=== PATIENT | female | born 1950 | race Caucasian/White ===

== ENCOUNTER 2017-01-02 13:08 | Emergency (ER) | payer MEDICARE, OTHER ==
[2017-01-02] MEDS ORDERED: LORazepam 0.5 MG TABLET PO STA (14:49)
[2017-01-02] MEDS ORDERED: LORazepam 0.5 MG TABLET ONE (14:50)
== END 2017-01-02 16:47 | disposition home or self-care (01) ==
DX: F41.9 Anxiety disorder, unspecified (principal); R73.9 Hyperglycemia, unspecified; R03.0 Elevated blood-pressure reading, without diagnosis of hypertension; Z87.891 Personal history of nicotine dependence
CPT/HCPCS: 36415; 80048; 84443; 99283; 99284; A9270

== ENCOUNTER 2017-02-16 00:54 | Outpatient (CLI) | payer MEDICARE, OTHER | END 2017-02-16 00:55 | disposition EMS.NT | LOC: EMS 00:54 | PROVIDERS: ATTEND Surgery | DX: R06.02 Shortness of breath (principal) ==

== ENCOUNTER 2017-02-28 00:24 | Outpatient (CLI) | payer MEDICARE, OTHER | END 2017-02-28 00:25 | disposition critical access hospital (66) | LOC: EMS 00:24 | PROVIDERS: ATTEND Surgery | DX: T50.902A Poisoning by unspecified drugs, medicaments and biological substances, intentional self-harm, initial encounter (principal) | CPT/HCPCS: A0425; A0433 ==

== ENCOUNTER 2017-03-01 00:44 | Inpatient (IN) | payer MEDICARE, OTHER ==
[~2017-03-01 00:44] MED LIST: ALBUTEROL NEB 2.5 MG/3 ML INH ONE; IPRATROPIUM/ALBUTEROL 3 ML NEB INH ONE; PROPOFOL 1000 MG/100 ML 0 ML IV ONE
[2017-03-01] MEDS ORDERED: methylPREDNISolone SUCCINATE 125 MG/2 ML VIAL IVP ONE (00:46)
[2017-03-01] MEDS ORDERED: MAGNESIUM SULFATE 2 GRAM 50 ML IV ONE ×2 (00:46→11:00)
[2017-03-01] MEDS ORDERED: EPINEPHrine 1 MG/ML AMP ONE ×2 (00:47→01:14)
[2017-03-01] MEDS ORDERED: LORazepam 2 MG/ML SYRINGE ONE (00:50)
[2017-03-01 01:07] LABS: BASOPHILS % (AUTO) 0.4 %; EOSINOPHILS # (AUTO) 0.1 10^3/uL (0.0-0.7); EOSINOPHILS % (AUTO) 1.3 %; HCT - HEMATOCRIT 36.3 % (37.0-47.0); HGB - HEMOGLOBIN 12.2 g/dL (12.0-16.0); LYMPHOCYTES # (AUTO) 1.4 10^3/uL (1.5-3.5); LYMPHOCYTES % (AUTO) 17.5 %; MEAN CORPUSCULAR HEMOGLOBIN 31.2 pg (27.0-31.0); MEAN CORPUSCULAR HGB CONC 33.5 g/dL (32.0-36.0); MEAN CORPUSCULAR VOLUME 93.2 fL (81.0-99.0); MEAN PLATELET VOLUME 7.2 fL (7.9-10.8); MONOCYTES # (AUTO) 0.7 10^3/uL (0.0-1.0); MONOCYTES % (AUTO) 8.6 %; NEUTROPHILS # (AUTO) 5.9 10^3/uL (1.5-6.6); NEUTROPHILS % (AUTO) 72.2 %; RED BLOOD COUNT 3.89 10^6/uL (4.20-5.40); RED CELL DISTRIBUTION WIDTH 14.1 % (12.0-15.0); UNCORRECTED WHITE BLOOD COUNT 8.1 x10^3/uL; WHITE BLOOD COUNT 8.1 x10^3/uL (4.8-10.8)
[2017-03-01] MEDS ORDERED: LORazepam 2 MG/ML SYRINGE IVP STA (01:07)
[2017-03-01] MEDS ORDERED: methylPREDNISolone SUCCINATE 125 MG/2 ML VIAL IVP STA (01:07)
[2017-03-01] MEDS ORDERED: MAGNESIUM SULFATE 1 GM/2 ML VIAL IVP STA (01:07)
[2017-03-01] MEDS ORDERED: EPINEPHrine 1 MG/ML AMP IM STA (01:07)
[2017-03-01] MEDS ORDERED: SODIUM BICARBONATE ABBOJECT 50 MEQ/50 ML SYRINGE ONE ×4 (01:09→03:57)
[2017-03-01 01:14] LABS: ALBUMIN/GLOBULIN RATIO 1.7 (1.0-2.2); BILIRUBIN,TOTAL 0.5 mg/dL (0.2-1.0); BUN - BLOOD UREA NITROGEN 19 mg/dL (6-20); CALCIUM 7.8 mg/dL (8.5-10.3); CARBON DIOXIDE - CO2 27 mmol/L (21-32); CHLORIDE 98 mmol/L (101-111); CREATININE 0.8 mg/dL (0.4-1.0); GFR - MDRD 72 (>89); GLUCOSE 156 mg/dL (70-100); LIPASE 72 U/L (22-51); MAGNESIUM 1.5 mg/dL (1.7-2.8); PHOSPHORUS 3.9 mg/dL (2.5-4.6); POTASSIUM 3.4 mmol/L (3.5-5.0); SODIUM 133 mmol/L (135-145); TOTAL PROTEIN 5.4 g/dL (6.7-8.2)
[2017-03-01] MEDS ORDERED: ETOMIDATE 40 MG/20 ML VIAL IVP STA (01:20)
[2017-03-01 01:21] LABS: CREATINE KINASE MB 1.6 ng/mL (0.6-6.3); TROPONIN I < 0.04 ng/mL (<0.49)
[2017-03-01] MEDS ORDERED: SUCCINYLCHOLINE 200 MG/10 ML VIAL IVP STA (01:22)
[2017-03-01] MEDS ORDERED: SODIUM BICARBONATE ABBOJECT 50 MEQ/50 ML SYRINGE IVP STA ×4 (01:23→01:57)
[2017-03-01] MEDS ORDERED: IPRATROPIUM/ALBUTEROL 3 ML NEB INH STA (01:35)
[2017-03-01] MEDS ORDERED: ALBUTEROL NEB 2.5 MG/3 ML INH STA (01:37)
[2017-03-01 01:41] LABS: BILIRUBIN,URINE NEGATIVE (NEGATIVE)
[2017-03-01 01:55] LABS: UA w/ MICROSCOPIC CHARGE YES; UR CULTURE IF IND NOT INDICATED
[2017-03-01] MEDS ORDERED: SODIUM CHLORIDE 0.9% 1,000 ML IV ONE ×2 (01:58)
--- NOTE | 2017-03-01 02:11 | XRAY Preliminary Report ---
Exam: XR Chest 1 View IMPRESSION: Small streaky left lateral basilar opacity may be due to atelectasis, aspiration, and/or pneumonia. [facility] SITE ID: [id number]
--- NOTE | 2017-03-01 02:13 | XRAY Report ---
EXAM: CHEST RADIOGRAPHY EXAM DATE: 03/01/2017 01:43 AM. CLINICAL HISTORY: Respiratory failure, intubation COMPARISON: None. TECHNIQUE: 1 view. FINDINGS: Lungs/Pleura: Nonspecific small streaky left basilar density with partial silhouetting of the left he midiaphragm. No effusion or pneumothorax demonstrated elsewhere. Mediastinum: Within exam limitations, cardiomediastinal contour is normal. Other: Endotracheal tube tip projects 6.1 cm above kolby. Orogastric tube extends below the inferior margin of the film. Rim calcified bilateral breast prosthesis are noted. IMPRESSION: Small streaky left lateral basilar opacity may be due to atelectasis, aspiration, and/or pneumonia. [facility] Referring Provider Line: [phone] SITE ID: [id number]
--- NOTE | 2017-03-01 02:22 | ED Physician Documentation ---
PD HPI ALTERED MENTAL STATUS - Stated complaint Stated Complaint: UNRESPONSIVE/SI - Chief complaint Chief Complaint: Resp - History obtained from History obtained from: Family, EMS - History of Present Illness Timing - onset: Today Quality / character: Unresponsive Contributing factors: COPD, New medication Basline status: Alert and oriented X 3, Independent Similar symptoms before: Has not had sx before Recently seen: Clinic - Additional information Additional information: Patient is a 66 year old female with a history of depression and recently diagnosed with copd who was brought into the emergency department for altered mental status. According to family and ems, when the woke up to go to the bathroom this evening (he sleeps in a different room) he noticed the hallway light was on. When he went to go check on the patient there was a note on the door that said "please dont come in, call the baseball winder." called ems. when ems arrived that patient was minimally responsive and barely breathing but with stable bp and heart rate. While enroute ems intubated the patient but they were having a hard time bagging the patient so they extubated the patient had did hand bagging. When patient arrived in the emergency department she was unresponsive but had stable vital signs. Review of Systems Unable to obtain: Unresponsive PD PAST MEDICAL HISTORY - Past Medical History Cardiovascular: High cholesterol Psych: Depression, Anxiety - Past Surgical History Past Surgical History: No - Present Medications Home Medications: Ambulatory Orders Medication Instructions Recorded Confirmed Amitriptyline HCl 25 mg PO DAILY 01/02/17 01/02/17 Clonazepam 0.5 mg PO Q12H PRN #15 tablet 01/02/17 Mirtazapine 45 mg PO DAILY 01/02/17 01/02/17 Simvastatin 10 mg PO DAILY 01/02/17 01/02/17 Venlafaxine HCl [Venlafaxine HCl 75 mg PO DAILY 01/02/17 01/02/17 ER] - Allergies Allergies/Adverse Reactions: Allergies Allergy/AdvReac Type Severity Reaction Status Date / Time No Known Drug Allergies Allergy Verified 01/02/17 13:15 - Social History Does the pt smoke?: No Smoking Status: Former smoker Does the pt drink ETOH?: No Does the pt have substance abuse?: No PD ED PE NORMAL - Vitals Vital signs reviewed: Yes - HEENT HEENT: Atraumatic - Derm Derm: No rash - Extremities Extremities: No deformity, No edema PD ED PE EXPANDED - General General: Unresponsive - HEENT HEENT: Pupils unequal (unequal and minimally responsive) - Neck Neck: JVD present - Cardiac Cardiac: Regular Rate, Regular Rhythm - Respiratory Respiratory: Distress, Labored, Wheezing, Decreased breath sounds - Abdomen Abdomen: No: Distended - GCS Eye Opening: None Motor: Withdraws to Pain Verbal: None Total: 6 Results - Vitals Vitals: Vital Signs - 24 hr 03/01/17 03/01/17 03/01/17 00:45 00:50 01:04 Temperature 35.8 C L Heart Rate 99 81 76 Respiratory 14 14 13 Rate Blood Pressure 127/72 110/55 L O2 Saturation 100 100 03/01/17 03/01/17 03/01/17 01:12 01:18 01:28 Temperature Heart Rate 79 82 73 Respiratory 15 16 Rate Blood Pressure 95/47 L O2 Saturation 100 03/01/17 03/01/17 03/01/17 01:34 01:51 02:04 Temperature Heart Rate 76 78 78 Respiratory 16 16 16 Rate Blood Pressure 106/57 L 121/64 113/63 O2 Saturation 100 100 100 Oxygen O2 Source Mechanical ventilator - EKG (time done) 0048 Rate: Rate (enter#) (75) Rhythm: NSR Austin: LAD Intervals: Prolonged ND Other comments: Other comments (widened qrs of 153, ) Compare to prior EKG: Old EKG unavailable 0123 Rate: Rate (enter#) (74) Rhythm: NSR Other comments: Other comments (qrs narrowed to 126) Compare to prior EKG: Changed from prior EKG - Labs Labs: Laboratory Tests 03/01/17 03/01/17 03/01/17 00:50 00:50 00:50 WBC 8.1 RBC 3.89 L Hgb 12.2 Hct 36.3 L MCV 93.2 MCH 31.2 H MCHC 33.5 RDW 14.1 Plt Count 166 MPV 7.2 L Neut # 5.9 Lymph # 1.4 L Dorado # 0.7 Eos # 0.1 Baso # 0.0 Absolute Nucleated RBC 0.00 Nucleated RBCs 0.0 Sodium 133 L Potassium 3.4 L Chloride 98 L Carbon Dioxide 27 Anion Gap 8.0 BUN 19 Creatinine 0.8 Estimated GFR (MDRD) 72 L Glucose 156 H Lactic Acid Calcium 7.8 L Phosphorus 3.9 Magnesium 1.5 L Total Bilirubin 0.5 AST 19 ALT 23 Alkaline Phosphatase 64 Total Creatine Kinase 55 CK-MB (CK-2) 1.6 Troponin I < 0.04 Total Protein 5.4 L Albumin 3.4 Globulin 2.0 L Albumin/Globulin Ratio 1.7 Lipase 72 H Urine Color Urine Clarity Urine pH Ur Specific [place] Urine Protein Urine Glucose (UA) Urine Ketones Urine Occult Blood Urine Nitrite Urine Bilirubin Urine Urobilinogen Ur Leukocyte Esterase Urine RBC Urine WBC Ur Squamous Epith Cells Urine Bacteria Urine Mucus Ur Microscopic Review Urine Culture Comments Urine Opiates Screen Ur Oxycodone Screen Urine Methadone Screen Ur Propoxyphene Screen Ur Barbiturates Screen Ur Tricyclics Screen Ur Phencyclidine Scrn Ur Amphetamine Screen U Methamphetamines Scrn U Benzodiazepines Scrn Urine Cocaine Screen U Cannabinoids Screen Ethyl Alcohol < 5.0 03/01/17 03/01/17 01:01 01:34 WBC RBC Hgb Hct MCV MCH MCHC RDW Plt Count MPV Neut # Lymph # Dorado # Eos # Baso # Absolute Nucleated RBC Nucleated RBCs Sodium Potassium Chloride Carbon Dioxide Anion Gap BUN Creatinine Estimated GFR (MDRD) Glucose Lactic Acid 2.8 H Calcium Phosphorus Magnesium Total Bilirubin AST ALT Alkaline Phosphatase Total Creatine Kinase CK-MB (CK-2) Troponin I Total Protein Albumin Globulin Albumin/Globulin Ratio Lipase Urine Color YELLOW Urine Clarity CLEAR Urine pH 6.0 Ur Specific [place] >=1.030 H Urine Protein NEGATIVE Urine Glucose (UA) NEGATIVE Urine Ketones NEGATIVE Urine Occult Blood NEGATIVE Urine Nitrite NEGATIVE Urine Bilirubin NEGATIVE Urine Urobilinogen 0.2 (NORMAL) Ur Leukocyte Esterase TRACE H Urine RBC 0-5 Urine WBC 4-5 Ur Squamous Epith Cells MOD Squamous H Urine Bacteria Few Urine Mucus Moderate Strands Ur Microscopic Review INDICATED Urine Culture Comments NOT INDICATED Urine Opiates Screen NEGATIVE Ur Oxycodone Screen NEGATIVE Urine Methadone Screen NEGATIVE Ur Propoxyphene Screen NEGATIVE Ur Barbiturates Screen NEGATIVE Ur Tricyclics Screen POSITIVE H Ur Phencyclidine Scrn NEGATIVE Ur Amphetamine Screen NEGATIVE U Methamphetamines Scrn NEGATIVE U Benzodiazepines Scrn NEGATIVE Urine Cocaine Screen NEGATIVE U Cannabinoids Screen NEGATIVE Ethyl Alcohol - Rads (name of study) chest x-ray Radiology: Final report received (et tube and central line in place) Procedures - Intubation Provider: Other (medics) Medications: Etomidate, Succinylcholine Blade: Jono Tube: Size-enter number (7), Cuffed Route: Oral Confirmation: Direct visualization, Bilateral breath sounds, End tidal CO2, Pulse ox, Chest xray Complications: No compications - Central Line Central Line Preparation: Unable to obtain consent, Ultrasound used, Sterile prep and drape Central line location: Left IJ Central line type: Triple lumen Central line aftercare: Chlorhexidine disc placed, Secured, Placement confirmed , No pneumothorax, No complications, Bundle checklist complete PD MEDICAL DECISION MAKING - ED course Complexity details: reviewed old records, reviewed results, re-evaluated patient , considered differential, d/w family, d/w instructional systems design consultant ED course: Patient was seen and examined at bedside. Patient's vital signs were within normal limits, but patient was minimally breathing. IV access was gained and labs were drawn. patient was treated with 3 duonebs, solumedrol, magnesium 2gm and epinephrine IM. ekg was performed. ekg showed no stemi but did showed widened qrs but no stemi. Patient had a seizure and was treated with 4 mg ativan Patient was treated with an amp of bicarb. Patient's gcs was so low and she would not be able to protect her airway. a second amp of bicarb was given. Patient was intubated successfully and an og tube was placed. Patient' s medicatiosn were counted and there were 30 amytriptiline were missing but the prescription was from 24 days ago. repeat ekg was perfromed after second amp of bicarb and the qrs improved from 150 to 126. Two more amps of bicarb was given. Central line was placed and patient was admitted to the ICU. - Critical Care Time(min): 30 Time Includes: Direct patient care, Review records, Reassess patient Data interpretation: Labs, Pulse ox, CXR, Prior EKG, Cardiac output Departure - Departure Disposition: 66 [facility] DC/Xfer Clinical Impression: Altered mental status Condition: Critical
[2017-03-01] MEDS ORDERED: ALBUTEROL NEB 2.5 MG/3 ML INH PRN (02:32)
[2017-03-01] MEDS ORDERED: SODIUM BICARBONATE 150 MEQ in DEXTROSE 5% 1,000 ML IV SCH ×2 (03:00→09:30)
[2017-03-01] MEDS ORDERED: SODIUM BICARBONATE 100 MEQ in DEXTROSE 5% 1,000 ML IV SCH (03:00)
--- NOTE | 2017-03-01 03:06 | XRAY Preliminary Report ---
Exam: XR Chest 1 View IMPRESSION: 1. Left IJ central venous catheter has been placed with the tip projecting over the mid to upper SVC. No definite pneumothorax seen on this supine exposure. 2. No other significant change in the appearance of the chest otherwise. Support apparatus noted. [facility] SITE ID: [id number]
--- NOTE | 2017-03-01 03:08 | XRAY Report ---
EXAM: CHEST RADIOGRAPHY EXAM DATE: 03/01/2017 02:27 AM. CLINICAL HISTORY: Line placement. COMPARISON: Comparison made with exam acquired earlier today at 0144 hours. TECHNIQUE: 1 view. FINDINGS/IMPRESSION: 1. Left IJ central venous catheter has been placed with the tip projecting over the mid to upper SVC. No definite pneumothorax seen on this supine exposure. 2. No other significant change in the appearance of the chest otherwise. Support apparatus noted. [facility] Referring Provider Line: [phone] SITE ID: [id number]
[2017-03-01] MEDS ORDERED: ENOXAPARIN 40 MG/0.4 ML SYRINGE SUBQ SCH (03:14)
[2017-03-01] MEDS ORDERED: MIDAZOLAM 2 MG/2 ML VIAL ONE (03:18)
[2017-03-01 03:27] LABS: POTASSIUM 3.4 mmol/L (3.5-5.0)
--- NOTE | 2017-03-01 03:44 | CT Preliminary Report ---
Exam: CT Head W/O IMPRESSION: Generalized age-related cortical atrophic changes without evidence of acute intracranial abnormality. [facility] SITE ID: [id number]
--- NOTE | 2017-03-01 03:46 | CT Report ---
EXAM: CT HEAD EXAM DATE: 03/01/2017 03:36 AM. CLINICAL HISTORY: Unresponsive. COMPARISON: None. TECHNIQUE: Multiaxial CT images were obtained from the foramen magnum to the vertex. IV contrast: Non e. Reformats: Coronal. In accordance with CT protocol optimization, one or more of the following dose reduction techniques w ere utilized for this exam: automated exposure control, adjustment of mA and/or KV based on patient s ize, or use of iterative reconstructive technique. FINDINGS: Parenchyma: No intraparenchymal hemorrhage. No evidence of mass, midline shift, or CT findings of acu te infarction. Ross-white differentiation is distinct. Extraaxial Spaces: Normal for age. No subdural or epidural collections identified. Ventricles: The ventricles and cortical sulci are mildly enlarged, consistent with age-related tissue loss. Sinuses: Imaged paranasal sinuses, orbits, and mastoids show no significant abnormality. Bones: No evidence of fracture or calvarial defect. Other: Diffuse chronic microangiopathic white matter changes are evident. IMPRESSION: Generalized age-related cortical atrophic changes without evidence of acute intracranial abnormality. [facility] Referring Provider Line: [phone] SITE ID: [id number]
--- NOTE | 2017-03-01 03:48 | HISTORY & PHYSICAL EXAMINATION ---
DATE OF ADMISSION: 03/01/2017 PRIMARY CARE PROVIDER: Dr. Sheehan, [facility]. CHIEF COMPLAINT: Found unresponsive with a suicide note. HISTORY OF PRESENT ILLNESS: This is a 66-year-old female who was found unresponsive by her . Bennett hoang is not at bedside currently to give report and also, suicide note was present. The patient was brought in by EMS. The patient did require ventilatory support for respiratory and airway management and was intubated in the emergency room. The patient also had a central line placed in the emergency room. Urine tox screen was significant for tricyclics. Alcohol level was negative. The patient does take tricyclics at home, amitriptyline 100 mg p.o. at bedtime daily. Potassium was noted to be 3.4, l actic acid 2.8, magnesium level 1.5. Troponin less than 0.04, CK was 55. The patient's last visit in the emergency room here was for anxiety and that was 12/2016. Apparently, they were titrating her off of clonazepam at that time. The patient also currently is taking venlafaxine ER. Unable to obtain an y other history. PAST MEDICAL HISTORY 1. Depression and anxiety. 2. Hyperlipidemia. MEDICATIONS UPON ADMISSION 1. Amitriptyline 100 mg p.o. at bedtime daily. 2. Mirtazapine 45 mg p.o. daily. 3. Simvastatin 10 mg p.o. daily. 4. Venlafaxine ER 75 mg p.o. daily. ALLERGIES: NO KNOWN DRUG ALLERGIES. SOCIAL HISTORY: Lives with . Former smoker. Alcohol none. FAMILY MEDICAL HISTORY: Unobtainable. REVIEW OF SYSTEMS: Unobtainable due to the patient's medical condition. PHYSICAL EXAMINATION VITAL SIGNS: Heart rate 76, respiratory rate 13, blood pressure 110/55, O2 saturation 100% on ventila tor. Heart rate is 73. CONSTITUTIONAL: Elderly woman who is intubated, does respond to some painful stimuli. HEAD: Normocephalic, atraumatic. EYES: Left eye is more constricted than right. Minimal response to light. MOUTH: The patient is intubated. NECK: No adenopathy. CHEST: Clear to auscultation. COR: Regular rate and rhythm, S1, S2. ABDOMEN: Soft, nontender. Bowel sounds are hypoactive. EXTREMITIES: No pedal edema. SKIN: No rashes. PSYCHIATRIC: Unable to assess. NEUROLOGIC: Responds to painful stimuli, moves all extremities. Plantars are downgoing bilaterally. LABORATORY DATA: As above, also to include white count 8.1, hematocrit 36.3, MCV 93.2, platelets 166, neutrophils 5.9. Sodium 133, potassium 3.4, chloride 98, bicarbonate 27, BUN 19, creatinine 0.8, manisha culated GFR 72, glucose 156. Lactic acid 2.8, calcium 7.8, albumin 3.4, phosphorus 3.9, magnesium 1.5 , total bilirubin 0.5, AST 19, ALT 23, alkaline phosphatase 64, CK 55, total protein 5.4, albumin 3.4 , lipase 72. Initial EKG shows widened QRS of 153 with a CA interval of 272 with poor R-wave progression across th e precordium. No old EKGs for comparison. Repeat EKG after IV boluses of sodium bicarbonate reveals s inus at a rate of 74 with a CA interval of 190, QRS of 126. Again, poor R-wave progression across the precordium is noted. No other EKGs available for comparison. ASSESSMENT AND PLAN 1. Intentional tricyclic overdose. [facility] Poison Control has been notified per ER. We will place on sodium bicarbonate drip 150 mg p.o. mEq per liter at 150 mL per hour. Monitor q.2h. lactic a ivan since it was elevated, q.2h. magnesium levels, replete electrolytes appropriately. Get electrolyt es q.2h. also. Place on telemetry. EKG in a.m. Once medically clear, we will need to have [facility] evalua tion for intentional overdose. 2. Deep venous thrombosis prophylaxis. We will use SCDs and place on Lovenox subcutaneous prophylacti sheila. TIME SPENT: 60 minutes. JOB #: [id number] EXT JOB #:[id number]
[2017-03-01] MEDS: SODIUM CHLORIDE FLUSH 0.9% 10 ML SYRINGE IVP PRN ×4 (04:15→10:40)
[2017-03-01 05:18] LABS: BASOPHILS % (AUTO) 0.2 %; EOSINOPHILS % (AUTO) 0.3 %; HCT - HEMATOCRIT 35.2 % (37.0-47.0); HGB - HEMOGLOBIN 11.8 g/dL (12.0-16.0); LYMPHOCYTES # (AUTO) 0.7 10^3/uL (1.5-3.5); LYMPHOCYTES % (AUTO) 11.2 %; MEAN CORPUSCULAR HEMOGLOBIN 31.1 pg (27.0-31.0); MEAN CORPUSCULAR HGB CONC 33.5 g/dL (32.0-36.0); MEAN CORPUSCULAR VOLUME 92.8 fL (81.0-99.0); MONOCYTES # (AUTO) 0.2 10^3/uL (0.0-1.0); MONOCYTES % (AUTO) 2.3 %; NEUTROPHILS # (AUTO) 5.7 10^3/uL (1.5-6.6); RED BLOOD COUNT 3.79 10^6/uL (4.20-5.40); RED CELL DISTRIBUTION WIDTH 14.7 % (12.0-15.0); UNCORRECTED WHITE BLOOD COUNT 6.6 x10^3/uL; WHITE BLOOD COUNT 6.6 x10^3/uL (4.8-10.8)
[2017-03-01 05:25] LABS: ALBUMIN/GLOBULIN RATIO 1.6 (1.0-2.2); BILIRUBIN,TOTAL 0.7 mg/dL (0.2-1.0); CREATININE 0.8 mg/dL (0.4-1.0); MAGNESIUM 2.1 mg/dL (1.7-2.8); PHOSPHORUS 1.5 mg/dL (2.5-4.6); TOTAL PROTEIN 5.4 g/dL (6.7-8.2)
[2017-03-01 05:29] LABS: BILIRUBIN,URINE NEGATIVE (NEGATIVE); PH,URINE 8.5 PH (5.0-7.5)
[2017-03-01 05:30] LABS: ABG PCO2 36 mmHg (34-45); ABG PH 7.51 (7.35-7.45); ABG PO2 132 mmHg (80-100)
[2017-03-01 05:31] LABS: ABG BASE EXCESS 5.3 mmol/L (-2.0-3.0); ABG HCO3 28.4 mmol/L (22.0-26.0); ABG MODE OF VENTILATION SIMV; ABG O2 DEVICE VENTILATOR; ABG OXYGEN SATURATION 98 % (94-98); ABG PEAK END EXPIRATORY PRESSU 5 cmH2O; ABG PRESSURE SUPPORT VENT 10 cmH2O; ABG RESPIRATORY RATE 16 b/min; ABG SATURATION PULSE OXIMETRY% 100 %; ABG SITE OF DRAW RIGHT RADIAL; ABG TCO2 29.5 MMOL/L (21.0-29.0); ALLEN TEST POSITIVE
[2017-03-01] MEDS: SODIUM CHLORIDE FLUSH 0.9% 10 ML SYRINGE IVP SCH ×2 (05:32→14:45)
[2017-03-01 05:36] LABS: UR CULTURE IF IND NOT INDICATED; WBC,URINE 0-3 /HPF (0-5)
[2017-03-01] MEDS ORDERED: SODIUM CHLORIDE 0.9% 500 ML IV ONE (06:17)
[2017-03-01] MEDS: POTASSIUM CHLOR 20 MEQ/100 ML 100 ML IV SCH ×2 (06:31→07:30)
[2017-03-01] MEDS ORDERED: POTASSIUM PHOSPHATE 21 MMOL in SODIUM CHLORIDE 0.9% 250 ML IV SCH (07:00)
[2017-03-01 07:13] LABS: POTASSIUM 3.2 mmol/L (3.5-5.0)
[2017-03-01] MEDS: PANTOPRAZOLE 40 MG VIAL IVP SCH (07:24)
[2017-03-01] MEDS ORDERED: PANTOPRAZOLE 40 MG VIAL IVP SCH (09:00)
[2017-03-01 09:10] LABS: CALCIUM 6.8 mg/dL (8.5-10.3)
[2017-03-01] MEDS: PROPOFOL 1000 MG/100 ML 100 ML IV SCH (09:11)
[2017-03-01 09:18] LABS: VBG PH 7.439 (7.31-7.41)
[2017-03-01 09:19] LABS: CALCIUM, IONIZED 0.97 mmol/L (1.15-1.33)
[2017-03-01] MEDS: CHLORHEXIDINE GLUCONATE 15 ML UDC PO SCH ×2 (10:22→21:51)
[2017-03-01] MEDS ORDERED: CALCIUM GLUCONATE 2,000 MG in SODIUM CHLORIDE 0.9% 100ML 100 ML IV ONE (10:30)
[2017-03-01 13:21] LABS: CALCIUM 7.7 mg/dL (8.5-10.3); CREATININE 0.6 mg/dL (0.4-1.0); POTASSIUM 4.1 mmol/L (3.5-5.0)
--- NOTE | 2017-03-01 13:29 | XRAY Report ---
FRONTAL CHEST: 03/01/2017 CLINICAL INDICATION: Intubated. COMPARISON: 03/01/2017 at 0230 hours. FINDINGS: Frontal view of the chest demonstrates an endotracheal tube terminating approximately 5 cm above the kolby. The orogastric tube terminates in the stomach. A left jugular central venous lukasz ter terminates in the superior vena cava. Minimal left basilar atelectasis or infiltrate is again see n. No effusion or pneumothorax. IMPRESSION: MINIMAL LEFT BASILAR AIR SPACE DISEASE. SUPPORT LINES AND TUBES ABOVE. JOB #: [id number] EXT JOB #:[id number]
[2017-03-01] MEDS: SODIUM BICARBONATE 150 MEQ in DEXTROSE 5% 1,000 ML IV SCH (14:45)
[2017-03-01] MEDS ORDERED: LORazepam 2 MG/ML SYRINGE IVP PRN (14:57)
[2017-03-01] MEDS ORDERED: CALCIUM GLUCONATE 1,000 MG in SODIUM CHLORIDE 0.9% 50 ML IV SCH (15:00)
[2017-03-01 15:01] LABS: CALCIUM 7.6 mg/dL (8.5-10.3); CREATININE 0.7 mg/dL (0.4-1.0); PHOSPHORUS 3.2 mg/dL (2.5-4.6); POTASSIUM 3.9 mmol/L (3.5-5.0)
[2017-03-01] MEDS: LORazepam 2 MG/ML SYRINGE IVP PRN ×5 (15:09→23:46)
[2017-03-01] MEDS: MORPHINE 2 MG/ML SYRINGE IVP PRN ×4 (15:42→23:46)
[2017-03-01 20:29] LABS: CALCIUM 7.5 mg/dL (8.5-10.3); CREATININE 0.8 mg/dL (0.4-1.0); POTASSIUM 3.5 mmol/L (3.5-5.0)
[2017-03-02] MEDS: PROPOFOL 1000 MG/100 ML 100 ML IV SCH (00:17)
[2017-03-02] MEDS: SODIUM CHLORIDE FLUSH 0.9% 10 ML SYRINGE IVP SCH ×5 (00:18→20:36)
[2017-03-02 00:39] LABS: CALCIUM 7.4 mg/dL (8.5-10.3); CREATININE 0.8 mg/dL (0.4-1.0); POTASSIUM 3.6 mmol/L (3.5-5.0)
[2017-03-02] MEDS: SODIUM BICARBONATE 150 MEQ in DEXTROSE 5% 1,000 ML IV SCH (01:19)
[2017-03-02 01:28] LABS: CALCIUM, IONIZED 1.01 mmol/L (1.15-1.33); VBG PH 7.529 (7.31-7.41)
[2017-03-02] MEDS: LORazepam 2 MG/ML SYRINGE IVP PRN ×5 (05:05→23:41)
[2017-03-02 05:15] LABS: BASOPHILS % (AUTO) 0.1 %; EOSINOPHILS % (AUTO) 0.5 %; HCT - HEMATOCRIT 29.6 % (37.0-47.0); HGB - HEMOGLOBIN 9.9 g/dL (12.0-16.0); LYMPHOCYTES # (AUTO) 2.2 10^3/uL (1.5-3.5); LYMPHOCYTES % (AUTO) 26.4 %; MEAN CORPUSCULAR HEMOGLOBIN 31.2 pg (27.0-31.0); MEAN CORPUSCULAR HGB CONC 33.5 g/dL (32.0-36.0); MEAN CORPUSCULAR VOLUME 93.3 fL (81.0-99.0); MEAN PLATELET VOLUME 7.2 fL (7.9-10.8); MONOCYTES # (AUTO) 0.7 10^3/uL (0.0-1.0); MONOCYTES % (AUTO) 8.1 %; NEUTROPHILS # (AUTO) 5.3 10^3/uL (1.5-6.6); NEUTROPHILS % (AUTO) 64.9 %; NUCLEATED RED BLOOD CELLS AUTO 0.1 /100WBC; RED BLOOD COUNT 3.17 10^6/uL (4.20-5.40); RED CELL DISTRIBUTION WIDTH 14.8 % (12.0-15.0); UNCORRECTED WHITE BLOOD COUNT 8.2 x10^3/uL; WHITE BLOOD COUNT 8.2 x10^3/uL (4.8-10.8)
[2017-03-02 05:25] LABS: CALCIUM 7.4 mg/dL (8.5-10.3); CREATININE 0.9 mg/dL (0.4-1.0); POTASSIUM 3.3 mmol/L (3.5-5.0)
[2017-03-02 06:02] LABS: ABG BASE EXCESS 7.6 mmol/L (-2.0-3.0); ABG HCO3 30.5 mmol/L (22.0-26.0); ABG PCO2 37 mmHg (34-45); ABG PH 7.54 (7.35-7.45); ABG TCO2 31.6 MMOL/L (21.0-29.0)
[2017-03-02 06:03] LABS: ABG MODE OF VENTILATION SIMV; ABG O2 DEVICE VENTILATOR; ABG PEAK END EXPIRATORY PRESSU 5 cmH2O; ABG PRESSURE SUPPORT VENT 10 cmH2O; ABG RESPIRATORY RATE 16 b/min; ABG SITE OF DRAW RIGHT RADIAL; ALLEN TEST POSITIVE
[2017-03-02 06:05] LABS: ABG OXYGEN SATURATION 86 % (94-98); ABG PO2 47 mmHg (80-100)
[2017-03-02] MEDS: PANTOPRAZOLE 40 MG VIAL IVP SCH (06:22)
[2017-03-02] MEDS: SODIUM CHLORIDE 0.9% 1,000 ML IV SCH ×2 (06:36→13:51)
[2017-03-02] MEDS: SODIUM CHLORIDE FLUSH 0.9% 10 ML SYRINGE IVP PRN (08:20)
[2017-03-02 08:37] LABS: ABG PCO2 35 mmHg (34-45); ABG PH 7.52 (7.35-7.45)
[2017-03-02 08:38] LABS: ABG MODE OF VENTILATION SIMV; ABG O2 DEVICE VENTILATOR; ABG PEAK END EXPIRATORY PRESSU 5 cmH2O; ABG PRESSURE SUPPORT VENT 10 cmH2O; ABG RESPIRATORY RATE 16 b/min; ABG SATURATION PULSE OXIMETRY% 98 %; ABG SITE OF DRAW RIGHT FEMORAL; ALLEN TEST POSITIVE
[2017-03-02 08:40] LABS: CALCIUM 7.5 mg/dL (8.5-10.3); CREATININE 0.8 mg/dL (0.4-1.0); POTASSIUM 3.4 mmol/L (3.5-5.0)
[2017-03-02 08:40] LABS: ABG OXYGEN SATURATION 53 % (94-98); ABG PO2 27 mmHg (80-100)
[2017-03-02] MEDS: CHLORHEXIDINE GLUCONATE 15 ML UDC PO SCH ×2 (09:48→20:36)
[2017-03-02] MEDS ORDERED: CALCIUM GLUCONATE 1,000 MG in SODIUM CHLORIDE 0.9% 50 ML IV ONE (10:11)
[2017-03-02] MEDS: POTASSIUM CHLOR 20 MEQ/100 ML 100 ML IV SCH ×2 (10:23→13:52)
[2017-03-02] MEDS: MORPHINE 2 MG/ML SYRINGE IVP PRN ×3 (11:14→23:41)
--- NOTE | 2017-03-02 11:33 | PROVIDER PROGRESS NOTE ---
Assessment/Plan - Problem List (1) Overdose Assessment/Plan: Appears to be a tricyclic OD. Her EKG is back to nml. D/C the bicarb (2) Coma Assessment/Plan: She is doing better. She is now opening eyes partially and momentarily. she is also sometimes following simple commands. Still on the vent, not cooperative yet to extubate. Will start a slow wean - Current Meds Current Meds: Current Medications Generic Name Dose Route Start Last Admin Trade Name Freq PRN Reason Stop Dose Admin Chlorhexidine Gluconate 15 ml 03/01/17 09:00 03/02/17 09:48 Peridex PO 15 ml BID NATHAN Administration Propofol 100 mls @ 1.701 mls/hr 03/01/17 03:00 03/02/17 05:54 Diprivan IV 59.73 mcg/kg/min TITR NATHAN Titration Protocol 5 MCG/KG/MIN Sodium Bicarbonate 150 meq/ 1,150 mls @ 100 mls/hr 03/01/17 14:30 03/02/17 01: 19 Dextrose IV 100 mls/hr .[id number] NATHAN Administration Sodium Chloride 1,000 mls @ 83.333 mls/hr 03/02/17 07:00 03/02/17 06:36 Normal Saline 0.9% IV 83.333 mls/hr .Q12H NATHAN Administration Potassium Chloride 100 mls @ 100 mls/hr 03/02/17 11:00 03/02/17 10:23 Potassium Chloride IV 03/02/17 12:59 100 mls/hr Q1H NATHAN Administration Protocol Lorazepam 1 mg 03/01/17 14:58 03/02/17 06:18 Ativan Inj IVP 1 mg Q1HR PRN Administration Anxiety Morphine Sulfate 2 mg 03/01/17 02:43 03/02/17 11:14 Morphine IVP 2 mg Q1H PRN Administration Discomfort Pantoprazole Sodium 40 mg 03/01/17 07:00 03/02/17 06:22 Protonix IVP 40 mg QDAC NATHAN Administration Sodium Chloride 10 ml 03/01/17 02:32 03/02/17 08:20 Normal Saline Flush 0.9% IVP 10 ml PRN PRN Administration NEEDED PER PROVIDER ORDERS Sodium Chloride 10 ml 03/01/17 06:00 03/02/17 06:19 Normal Saline Flush 0.9% IVP 10 ml Q8HR NATHAN Administration - Lab Result Fish Bone Diagrams: 03/02/17 04:56 03/02/17 08:10 - Additional Planning My Orders: My Active Orders 03/01/17 14:30 Dextrose 5% [D5w] 1,000 ml Sodium Bicarbonate 150 meq IV 100 mls/hr 03/01/17 14:58 LORazepam INJ [Ativan Inj] 1 mg IVP Q1HR PRN 03/02/17 07:00 Sodium Chloride 0.9% [Normal Saline 0.9%] 1,000 ml IV 83.333 mls/hr 03/02/17 08:23 Arterial Blood Gases - RT [RC] .ONCE 03/02/17 11:00 Potassium Chlor 20 Meq/100 ml [Potassium Chloride] 100 ml IV Q1H Subjective - Subjective Nursing Reports: Sedated Objective Vital Signs: Vital Signs - 24 hr 03/01/17 03/01/17 03/01/17 11:36 11:45 12:57 Temperature 36.4 C L Heart Rate 72 Heart Rate [ 72 69 Monitoring electrodes] Respiratory 16 16 16 Rate Blood Pressure 116/54 L 117/54 L [Left Brachial artery] O2 Saturation 100 100 03/01/17 03/01/17 03/01/17 13:00 13:10 13:55 Temperature 36.7 C Heart Rate 70 Heart Rate [ 70 79 Monitoring electrodes] Respiratory 16 22 Rate Blood Pressure 118/56 L 150/65 H [Left Brachial artery] O2 Saturation 100 100 03/01/17 03/01/17 03/01/17 13:58 14:50 16:00 Temperature 36.7 C Heart Rate Heart Rate [ 80 78 65 Monitoring electrodes] Respiratory 16 19 16 Rate Blood Pressure 150/65 H 132/66 H 102/52 L [Left Brachial artery] O2 Saturation 100 100 100 03/01/17 03/01/17 03/01/17 16:46 17:25 18:00 Temperature 37.2 C Heart Rate 74 Heart Rate [ 65 70 Monitoring electrodes] Respiratory 16 16 Rate Blood Pressure 102/52 L 109/53 L [Left Brachial artery] O2 Saturation 99 99 03/01/17 03/01/17 03/01/17 18:54 20:00 21:00 Temperature 37.1 C 37.2 C Heart Rate Heart Rate [ 66 65 65 Monitoring electrodes] Respiratory 16 16 16 Rate Blood Pressure 104/52 L 108/51 L 106/51 L [Left Brachial artery] O2 Saturation 100 100 100 03/01/17 03/01/17 03/01/17 21:45 22:00 23:00 Temperature Heart Rate 65 Heart Rate [ 65 65 Monitoring electrodes] Respiratory 16 16 Rate Blood Pressure 110/50 L 107/50 L [Left Brachial artery] O2 Saturation 100 99 03/02/17 03/02/17 03/02/17 00:00 01:00 01:35 Temperature 37.1 C Heart Rate 66 Heart Rate [ 70 64 Monitoring electrodes] Respiratory 16 16 Rate Blood Pressure 119/56 L 97/49 L [Left Brachial artery] O2 Saturation 99 99 03/02/17 03/02/17 03/02/17 02:00 03:00 04:00 Temperature 36.9 C Heart Rate Heart Rate [ 66 67 61 Monitoring electrodes] Respiratory 16 16 16 Rate Blood Pressure 115/56 L 111/59 L 97/52 L [Left Brachial artery] O2 Saturation 99 98 03/02/17 03/02/17 03/02/17 04:05 05:00 06:00 Temperature Heart Rate 61 Heart Rate [ 65 Monitoring electrodes] Respiratory 16 Rate Blood Pressure 102/50 L 120/69 [Left Brachial artery] O2 Saturation 98 03/02/17 03/02/17 03/02/17 06:57 07:45 07:56 Temperature 36.9 C Heart Rate 63 Heart Rate [ 62 65 Monitoring electrodes] Respiratory 16 16 Rate Blood Pressure 110/52 L 124/61 [Left Brachial artery] O2 Saturation 95 98 03/02/17 03/02/17 03/02/17 09:00 09:21 10:12 Temperature Heart Rate Heart Rate [ 54 L 53 L 63 Monitoring electrodes] Respiratory 16 16 16 Rate Blood Pressure 84/46 L 78/43 L 123/62 [Left Brachial artery] O2 Saturation 99 98 100 03/02/17 03/02/17 10:53 11:15 Temperature Heart Rate 64 Heart Rate [ 69 Monitoring electrodes] Respiratory 16 Rate Blood Pressure 132/69 H [Left Brachial artery] O2 Saturation 100 Oxygen O2 Source Mechanical ventilator I&O (Last 24 Hrs): Intake and Output Totals x24h 02/28/17 03/01/17 03/02/17 23:59 23:59 23:59 Intake Total 4698 1961 Output Total 0231 1905 Balance 1967 57 General: Alert, No acute distress HEENT: PERRLA, EOMI Neck: No JVD, No thyromegaly Lymphatic: no adenopathy Neuro: Disoriented, Non Focal Cardiovascular: Regular rate, No murmurs Respiratory: Chest non-tender, Breath sounds nml Abdomen: Soft, No tenderness Skin: No rashes, No breakdown - Results Results: Laboratory Results WBC 8.2 x10^3/uL (4.8-10.8) 03/02/17 04:56 RBC 3.17 10^6/uL (4.20-5.40) L 03/02/17 04:56 Hgb 9.9 g/dL (12.0-16.0) L 03/02/17 04:56 Hct 29.6 % (37.0-47.0) L 03/02/17 04:56 MCV 93.3 fL (81.0-99.0) 03/02/17 04:56 MCH 31.2 pg (27.0-31.0) H 03/02/17 04:56 MCHC 33.5 g/dL (32.0-36.0) 03/02/17 04:56 RDW 14.8 % (12.0-15.0) 03/02/17 04:56 Plt Count 158 10^3/uL (130-450) 03/02/17 04:56 MPV 7.2 fL (7.9-10.8) L 03/02/17 04:56 Neut # 5.3 10^3/uL (1.5-6.6) 03/02/17 04:56 Lymph # 2.2 10^3/uL (1.5-3.5) 03/02/17 04:56 [place] # 0.7 10^3/uL (0.0-1.0) 03/02/17 04:56 Eos # 0.0 10^3/uL (0.0-0.7) 03/02/17 04:56 Baso # 0.0 10^3/uL (0.0-0.1) 03/02/17 04:56 Absolute Nucleated RBC 0.01 x10^3/uL 03/02/17 04:56 Nucleated RBCs 0.1 /100WBC 03/02/17 04:56 Bld Gas Analysis Time 0820 03/02/17 08:20 Sample Site RIGHT FEMORAL 03/02/17 08:20 Patient Temperature 36.0 CELSIUS 03/01/17 05:20 ABG pH 7.52 (7.35-7.45) H 03/02/17 08:20 ABG pCO2 35 mmHg (34-45) 03/02/17 08:20 ABG pO2 27 mmHg (80-100) L* 03/02/17 08:20 ABG HCO3 28.0 mmol/L (22.0-26.0) H 03/02/17 08:20 ABG Total CO2 29.0 MMOL/L (21.0-29.0) 03/02/17 08:20 ABG O2 Saturation 53 % (94-98) L* 03/02/17 08:20 ABG Oximetry Spot Check 98 % 03/02/17 08:20 ABG Base Excess 5.0 mmol/L (-2.0-3.0) H 03/02/17 08:20 [place]obe Test POSITIVE 03/02/17 08:20 VBG pH 7.529 (7.31-7.41) H 03/02/17 01:25 Ionized Calcium 1.01 mmol/L (1.15-1.33) L 03/02/17 01:25 Respiration Rate 16 b/min 03/02/17 08:20 O2 Delivery Device VENTILATOR 03/02/17 08:20 Vent Mode SIMV 03/02/17 08:20 FiO2 30.00 03/02/17 08:20 Tidal Volume 550 mL 03/02/17 08:20 PEEP 5 cmH2O 03/02/17 08:20 Pressure Support Vent 10 cmH2O 03/02/17 08:20 Sodium 138 mmol/L (135-145) 03/02/17 08:10 Potassium 3.4 mmol/L (3.5-5.0) L 03/02/17 08:10 Chloride 104 mmol/L (101-111) 03/02/17 08:10 Carbon Dioxide 29 mmol/L (21-32) 03/02/17 08:10 Anion Gap 5.0 (6-13) L 03/02/17 08:10 BUN 9 mg/dL (6-20) 03/02/17 08:10 Creatinine 0.8 mg/dL (0.4-1.0) 03/02/17 08:10 Estimated GFR (MDRD) 72 (>89) L 03/02/17 08:10 Glucose 104 mg/dL (70-100) H 03/02/17 08:10 Lactic Acid 2.7 mmol/L (0.5-2.2) H 03/01/17 06:45 Calcium 7.5 mg/dL (8.5-10.3) L 03/02/17 08:10 Ionized Calcium YES 03/01/17 08:35 Phosphorus 3.2 mg/dL (2.5-4.6) 03/01/17 14:40 Magnesium 2.3 mg/dL (1.7-2.8) 03/01/17 14:40 Total Bilirubin 0.7 mg/dL (0.2-1.0) 03/01/17 05:05 AST 24 IU/L (10-42) 03/01/17 05:05 ALT 26 IU/L (10-60) 03/01/17 05:05 Alkaline Phosphatase 65 IU/L (42-121) 03/01/17 05:05 Total Creatine Kinase 55 IU/L (22-269) 03/01/17 00:50 CK-MB (CK-2) 1.4 ng/mL (0.6-6.3) 03/01/17 02:59 Troponin I < 0.04 ng/mL (<0.49) 03/01/17 14:40 Total Protein 5.4 g/dL (6.7-8.2) L 03/01/17 05:05 Albumin 2.9 g/dL (3.2-5.5) L 03/01/17 08:35 Globulin 2.1 g/dL (2.1-4.2) 03/01/17 05:05 Albumin/Globulin Ratio 1.6 (1.0-2.2) 03/01/17 05:05 Lipase 72 U/L (22-51) H 03/01/17 00:50 Urine Color YELLOW 03/01/17 05:20 Urine Clarity CLEAR (CLEAR) 03/01/17 05:20 Urine pH 8.5 PH (5.0-7.5) H 03/01/17 05:20 Ur Specific [place] 1.015 (1.002-1.030) 03/01/17 05:20 Urine Protein NEGATIVE mg/dL (NEGATIVE) 03/01/17 05:20 Urine Glucose (UA) NEGATIVE mg/dL (NEGATIVE) 03/01/17 05:20 Urine Ketones 40 mg/dL (NEGATIVE) H 03/01/17 05:20 Urine Occult Blood TRACE-LYSE (NEGATIVE) 03/01/17 05:20 Urine Nitrite NEGATIVE (NEGATIVE) 03/01/17 05:20 Urine Bilirubin NEGATIVE (NEGATIVE) 03/01/17 05:20 Urine Urobilinogen 0.2 (NORMAL) E.U./dL (NORMAL) 03/01/17 05:20 Ur Leukocyte Esterase NEGATIVE (NEGATIVE) 03/01/17 05:20 Urine RBC 0-5 /HPF (0-5) 03/01/17 05:20 Urine WBC 0-3 /HPF (0-5) 03/01/17 05:20 Ur Squamous Epith Cells RARE Squamous (<= Few) 03/01/17 05:20 Urine Bacteria None Seen /HPF (None Seen) 03/01/17 05:20 Urine Mucus Moderate Strands 03/01/17 01:34 Ur Microscopic Review INDICATED 03/01/17 01:34 Urine Culture Comments NOT INDICATED 03/01/17 05:20 Urine Opiates Screen NEGATIVE (NEGATIVE) 03/01/17 01:34 Ur Oxycodone Screen NEGATIVE (NEGATIVE) 03/01/17 01:34 Urine Methadone Screen NEGATIVE (NEGATIVE) 03/01/17 01:34 Ur Propoxyphene Screen NEGATIVE (NEGATIVE) 03/01/17 01:34 Ur Barbiturates Screen NEGATIVE (NEGATIVE) 03/01/17 01:34 Ur Tricyclics Screen POSITIVE (NEGATIVE) H 03/01/17 01:34 Ur Phencyclidine Scrn NEGATIVE (NEGATIVE) 03/01/17 01:34 Ur Amphetamine Screen NEGATIVE (NEGATIVE) 03/01/17 01:34 U Methamphetamines Scrn NEGATIVE (NEGATIVE) 03/01/17 01:34 U Benzodiazepines Scrn NEGATIVE (NEGATIVE) 03/01/17 01:34 Urine Cocaine Screen NEGATIVE (NEGATIVE) 03/01/17 01:34 U Cannabinoids Screen NEGATIVE (NEGATIVE) 03/01/17 01:34 Ethyl Alcohol < 5.0 mg/dL 03/01/17 00:50
[2017-03-02] MEDS ORDERED: OLANZapine 10 MG VIAL IM SCH (23:54)
[2017-03-03] MEDS: LORazepam 2 MG/ML SYRINGE IVP PRN ×6 (02:15→23:38)
[2017-03-03] MEDS: SODIUM CHLORIDE 0.9% 1,000 ML IV SCH ×3 (02:20→19:51)
[2017-03-03] MEDS: PROPOFOL 1000 MG/100 ML 100 ML IV SCH (02:21)
[2017-03-03] MEDS: PANTOPRAZOLE 40 MG VIAL IVP SCH (06:15)
[2017-03-03] MEDS: SODIUM CHLORIDE FLUSH 0.9% 10 ML SYRINGE IVP SCH ×3 (06:15→19:52)
[2017-03-03] MEDS: POLYETHYLENE GLYCOL 3350 17 GM PACKET PO SCH (08:30)
[2017-03-03 09:50] LABS: BASOPHILS % (AUTO) 0.4 %; EOSINOPHILS # (AUTO) 0.2 10^3/uL (0.0-0.7); EOSINOPHILS % (AUTO) 2.9 %; HCT - HEMATOCRIT 30.7 % (37.0-47.0); HGB - HEMOGLOBIN 10.3 g/dL (12.0-16.0); LYMPHOCYTES # (AUTO) 1.3 10^3/uL (1.5-3.5); LYMPHOCYTES % (AUTO) 18.7 %; MEAN CORPUSCULAR HEMOGLOBIN 31.3 pg (27.0-31.0); MEAN CORPUSCULAR HGB CONC 33.6 g/dL (32.0-36.0); MEAN CORPUSCULAR VOLUME 93.1 fL (81.0-99.0); MEAN PLATELET VOLUME 7.2 fL (7.9-10.8); MONOCYTES # (AUTO) 0.6 10^3/uL (0.0-1.0); MONOCYTES % (AUTO) 8.2 %; NEUTROPHILS # (AUTO) 4.8 10^3/uL (1.5-6.6); NEUTROPHILS % (AUTO) 69.8 %; RED BLOOD COUNT 3.29 10^6/uL (4.20-5.40); RED CELL DISTRIBUTION WIDTH 14.6 % (12.0-15.0); UNCORRECTED WHITE BLOOD COUNT 6.9 x10^3/uL; WHITE BLOOD COUNT 6.9 x10^3/uL (4.8-10.8)
[2017-03-03 09:56] LABS: ALBUMIN/GLOBULIN RATIO 1.2 (1.0-2.2); BILIRUBIN,TOTAL 0.6 mg/dL (0.2-1.0); CREATININE 0.8 mg/dL (0.4-1.0); POTASSIUM 4.1 mmol/L (3.5-5.0); TOTAL PROTEIN 5.6 g/dL (6.7-8.2)
--- NOTE | 2017-03-03 10:44 | PROVIDER PROGRESS NOTE ---
Assessment/Plan - Problem List (1) Overdose Assessment/Plan: Jonna has improved more overnight. She had confusion and confabulation last night. She is now hungry and following directions well. Her EKG is back to baseline. She has lab pending from this am to clear her kidney and liver function. (2) Coma Assessment/Plan: Her coma has resolved. She is a poor historian at this point and during interview was unable to say who the President is and facts from th past were unretrievable or fuzzy and some did not make sense, like she worked for [employer] after High School for a couple of weeks. She is scratching at the sheet trying to get a piece of Invisible paper. - Current Meds Current Meds: Current Medications Generic Name Dose Route Start Last Admin Trade Name Freq PRN Reason Stop Dose Admin Chlorhexidine Gluconate 15 ml 03/01/17 09:00 03/02/17 20:36 Peridex PO 15 ml BID NATHAN Administration Propofol 100 mls @ 1.701 mls/hr 03/01/17 03:00 03/03/17 02:21 Diprivan IV Not Given TITR NATHAN Protocol 5 MCG/KG/MIN Sodium Chloride 1,000 mls @ 83.333 mls/hr 03/02/17 07:00 03/03/17 02:20 Normal Saline 0.9% IV 83.333 mls/hr .Q12H NATHAN Administration Lorazepam 1 mg 03/01/17 14:58 03/03/17 04:08 Ativan Inj IVP 1 mg Q1HR PRN Administration Anxiety Morphine Sulfate 2 mg 03/01/17 02:43 03/02/17 21:46 Morphine IVP 2 mg Q1H PRN Administration Discomfort Pantoprazole Sodium 40 mg 03/01/17 07:00 03/03/17 06:15 Protonix IVP 40 mg QDAC NATHAN Administration Polyethylene Glycol 17 gm 03/03/17 09:00 03/03/17 08:30 Miralax PO Not Given DAILY NATHAN Sodium Chloride 10 ml 03/01/17 02:32 03/02/17 08:20 Normal Saline Flush 0.9% IVP 10 ml PRN PRN Administration NEEDED PER PROVIDER ORDERS Sodium Chloride 10 ml 03/01/17 06:00 03/03/17 09:31 Normal Saline Flush 0.9% IVP 10 ml Q8HR NATHAN Administration - Lab Result Fish Bone Diagrams: 03/03/17 09:30 03/03/17 09:30 - Additional Planning My Orders: My Active Orders 03/03/17 09:00 Polyethylene Glycol 3350 [Miralax] 17 gm PO DAILY 03/03/17 09:30 CALCIUM [CHEM] DAILY POTASSIUM [CHEM] DAILY 03/03/17 Lunch DIET [Regular Diet] [DIET] 03/04/17 05:00 CBC - COMP BLD CT W/AUTO DIFF [HEME] DAILYLAB CMP [COMPREHENSIVE METABOLIC PANEL] [CHEM] DAILYLAB Subjective - Subjective Patient Reports: Resting Comfortably, Fatigue Objective Vital Signs: Vital Signs - 24 hr 03/02/17 03/02/17 03/02/17 10:53 11:15 11:52 Temperature Heart Rate 64 Heart Rate [ 69 60 Monitoring electrodes] Respiratory 16 14 14 Rate Blood Pressure 132/69 H 114/60 [Left Brachial artery] O2 Saturation 100 100 03/02/17 03/02/17 03/02/17 12:50 13:00 14:00 Temperature Heart Rate 57 L Heart Rate [ 58 L 59 L Monitoring electrodes] Respiratory 12 10 L Rate Blood Pressure 113/63 131/57 H [Left Brachial artery] O2 Saturation 100 100 03/02/17 03/02/17 03/02/17 14:45 15:00 16:00 Temperature 37.0 C Heart Rate 64 Heart Rate [ 63 81 Monitoring electrodes] Respiratory 10 L 13 Rate Blood Pressure 120/60 137/70 H [Left Brachial artery] O2 Saturation 98 03/02/17 03/02/17 03/02/17 16:30 17:00 18:05 Temperature Heart Rate 80 Heart Rate [ 79 84 Monitoring electrodes] Respiratory 17 23 Rate Blood Pressure 130/68 187/71 H [Left Brachial artery] O2 Saturation 97 03/02/17 03/02/17 03/02/17 20:00 21:00 22:00 Temperature 37.1 C Heart Rate Heart Rate [ 91 91 92 Monitoring electrodes] Respiratory 23 23 22 Rate Blood Pressure 139/59 H 116/74 133/64 H [Left Brachial artery] O2 Saturation 93 97 96 03/02/17 03/03/17 03/03/17 23:00 00:00 01:00 Temperature 36.9 C 36.9 C Heart Rate Heart Rate [ 90 89 87 Monitoring electrodes] Respiratory 22 21 20 Rate Blood Pressure 123/63 134/70 H 129/66 [Left Brachial artery] O2 Saturation 92 97 97 03/03/17 03/03/17 03/03/17 02:00 03:00 04:00 Temperature 36.6 C Heart Rate Heart Rate [ 86 82 79 Monitoring electrodes] Respiratory 20 22 17 Rate Blood Pressure 136/64 H 136/64 H 125/82 H [Left Brachial artery] O2 Saturation 97 94 96 03/03/17 03/03/17 03/03/17 04:59 05:56 06:46 Temperature Heart Rate Heart Rate [ 66 64 69 Monitoring electrodes] Respiratory 14 14 14 Rate Blood Pressure 128/56 L 117/56 L 113/65 [Left Brachial artery] O2 Saturation 98 99 98 03/03/17 03/03/17 03/03/17 07:50 08:54 10:00 Temperature 36.4 C L Heart Rate Heart Rate [ 66 64 75 Monitoring electrodes] Respiratory 17 14 19 Rate Blood Pressure 124/66 123/64 122/66 [Left Brachial artery] O2 Saturation 98 99 99 Oxygen O2 Source Nasal cannula I&O (Last 24 Hrs): Intake and Output Totals x24h 03/01/17 03/02/17 03/03/17 23:59 23:59 23:59 Intake Total 4698 3200 900 Output Total 5860 0104 6235 Balance 8065 -655 -8647 General: Alert, Cooperative HEENT: PERRLA, EOMI Neck: No JVD, No thyromegaly Neuro: Alert, Disoriented, Non Focal Cardiovascular: Regular rate, No murmurs Respiratory: Chest non-tender, No respiratory distress, Breath sounds nml Skin: No rashes, No breakdown - Results Results: Laboratory Results WBC 6.9 x10^3/uL (4.8-10.8) 03/03/17 09:30 RBC 3.29 10^6/uL (4.20-5.40) L 03/03/17 09:30 Hgb 10.3 g/dL (12.0-16.0) L 03/03/17 09:30 Hct 30.7 % (37.0-47.0) L 03/03/17 09:30 MCV 93.1 fL (81.0-99.0) 03/03/17 09:30 MCH 31.3 pg (27.0-31.0) H 03/03/17 09:30 MCHC 33.6 g/dL (32.0-36.0) 03/03/17 09:30 RDW 14.6 % (12.0-15.0) 03/03/17 09:30 Plt Count 140 10^3/uL (130-450) 03/03/17 09:30 MPV 7.2 fL (7.9-10.8) L 03/03/17 09:30 Neut # 4.8 10^3/uL (1.5-6.6) 03/03/17 09:30 Lymph # 1.3 10^3/uL (1.5-3.5) L 03/03/17 09:30 [place] # 0.6 10^3/uL (0.0-1.0) 03/03/17 09:30 Eos # 0.2 10^3/uL (0.0-0.7) 03/03/17 09:30 Baso # 0.0 10^3/uL (0.0-0.1) 03/03/17 09:30 Absolute Nucleated RBC 0.00 x10^3/uL 03/03/17 09:30 Nucleated RBCs 0.0 /100WBC 03/03/17 09:30 Bld Gas Analysis Time 81903/02/17 08:20 Sample Site RIGHT FEMORAL 03/02/17 08:20 Patient Temperature 36.0 CELSIUS 03/01/17 05:20 ABG pH 7.52 (7.35-7.45) H 03/02/17 08:20 ABG pCO2 35 mmHg (34-45) 03/02/17 08:20 ABG pO2 27 mmHg (80-100) L* 03/02/17 08:20 ABG HCO3 28.0 mmol/L (22.0-26.0) H 03/02/17 08:20 ABG Total CO2 29.0 MMOL/L (21.0-29.0) 03/02/17 08:20 ABG O2 Saturation 53 % (94-98) L* 03/02/17 08:20 ABG Oximetry Spot Check 98 % 03/02/17 08:20 ABG Base Excess 5.0 mmol/L (-2.0-3.0) H 03/02/17 08:20 [place] Test POSITIVE 03/02/17 08:20 VBG pH 7.529 (7.31-7.41) H 03/02/17 01:25 Ionized Calcium 1.01 mmol/L (1.15-1.33) L 03/02/17 01:25 Respiration Rate 16 b/min 03/02/17 08:20 O2 Delivery Device VENTILATOR 03/02/17 08:20 Vent Mode SIMV 03/02/17 08:20 FiO2 30.00 03/02/17 08:20 Tidal Volume 550 mL 03/02/17 08:20 PEEP 5 cmH2O 03/02/17 08:20 Pressure Support Vent 10 cmH2O 03/02/17 08:20 Sodium 138 mmol/L (135-145) 03/03/17 09:30 Potassium 4.1 mmol/L (3.5-5.0) 03/03/17 09:30 Chloride 105 mmol/L (101-111) 03/03/17 09:30 Carbon Dioxide 28 mmol/L (21-32) 03/03/17 09:30 Anion Gap 5.0 (6-13) L 03/03/17 09:30 BUN 8 mg/dL (6-20) 03/03/17 09:30 Creatinine 0.8 mg/dL (0.4-1.0) 03/03/17 09:30 Estimated GFR (MDRD) 72 (>89) L 03/03/17 09:30 Glucose 87 mg/dL (70-100) 03/03/17 09:30 Lactic Acid 2.7 mmol/L (0.5-2.2) H 03/01/17 06:45 Calcium 8.0 mg/dL (8.5-10.3) L 03/03/17 09:30 Ionized Calcium YES 03/01/17 08:35 Phosphorus 3.2 mg/dL (2.5-4.6) 03/01/17 14:40 Magnesium 2.3 mg/dL (1.7-2.8) 03/01/17 14:40 Total Bilirubin 0.6 mg/dL (0.2-1.0) 03/03/17 09:30 AST 21 IU/L (10-42) 03/03/17 09:30 ALT 22 IU/L (10-60) 03/03/17 09:30 Alkaline Phosphatase 65 IU/L (42-121) 03/03/17 09:30 Total Creatine Kinase 55 IU/L (22-269) 03/01/17 00:50 CK-MB (CK-2) 1.4 ng/mL (0.6-6.3) 03/01/17 02:59 Troponin I < 0.04 ng/mL (<0.49) 03/01/17 14:40 Total Protein 5.6 g/dL (6.7-8.2) L 03/03/17 09:30 Albumin 3.1 g/dL (3.2-5.5) L 03/03/17 09:30 Globulin 2.5 g/dL (2.1-4.2) 03/03/17 09:30 Albumin/Globulin Ratio 1.2 (1.0-2.2) 03/03/17 09:30 Lipase 72 U/L (22-51) H 03/01/17 00:50 Urine Color YELLOW 03/01/17 05:20 Urine Clarity CLEAR (CLEAR) 03/01/17 05:20 Urine pH 8.5 PH (5.0-7.5) H 03/01/17 05:20 Ur Specific [place] 1.015 (1.002-1.030) 03/01/17 05:20 Urine Protein NEGATIVE mg/dL (NEGATIVE) 03/01/17 05:20 Urine Glucose (UA) NEGATIVE mg/dL (NEGATIVE) 03/01/17 05:20 Urine Ketones 40 mg/dL (NEGATIVE) H 03/01/17 05:20 Urine Occult Blood TRACE-LYSE (NEGATIVE) 03/01/17 05:20 Urine Nitrite NEGATIVE (NEGATIVE) 03/01/17 05:20 Urine Bilirubin NEGATIVE (NEGATIVE) 03/01/17 05:20 Urine Urobilinogen 0.2 (NORMAL) E.U./dL (NORMAL) 03/01/17 05:20 Ur Leukocyte Esterase NEGATIVE (NEGATIVE) 03/01/17 05:20 Urine RBC 0-5 /HPF (0-5) 03/01/17 05:20 Urine WBC 0-3 /HPF (0-5) 03/01/17 05:20 Ur Squamous Epith Cells RARE Squamous (<= Few) 03/01/17 05:20 Urine Bacteria None Seen /HPF (None Seen) 03/01/17 05:20 Urine Mucus Moderate Strands 03/01/17 01:34 Ur Microscopic Review INDICATED 03/01/17 01:34 Urine Culture Comments NOT INDICATED 03/01/17 05:20 Urine Opiates Screen NEGATIVE (NEGATIVE) 03/01/17 01:34 Ur Oxycodone Screen NEGATIVE (NEGATIVE) 03/01/17 01:34 Urine Methadone Screen NEGATIVE (NEGATIVE) 03/01/17 01:34 Ur Propoxyphene Screen NEGATIVE (NEGATIVE) 03/01/17 01:34 Ur Barbiturates Screen NEGATIVE (NEGATIVE) 03/01/17 01:34 Ur Tricyclics Screen POSITIVE (NEGATIVE) H 03/01/17 01:34 Ur Phencyclidine Scrn NEGATIVE (NEGATIVE) 03/01/17 01:34 Ur Amphetamine Screen NEGATIVE (NEGATIVE) 03/01/17 01:34 U Methamphetamines Scrn NEGATIVE (NEGATIVE) 03/01/17 01:34 U Benzodiazepines Scrn NEGATIVE (NEGATIVE) 03/01/17 01:34 Urine Cocaine Screen NEGATIVE (NEGATIVE) 03/01/17 01:34 U Cannabinoids Screen NEGATIVE (NEGATIVE) 03/01/17 01:34 Ethyl Alcohol < 5.0 mg/dL 03/01/17 00:50
[2017-03-03 10:53] LABS: POTASSIUM 4.1 mmol/L (3.5-5.0)
[2017-03-03] MEDS: CHLORHEXIDINE GLUCONATE 15 ML UDC PO SCH ×2 (13:39→19:52)
[2017-03-03] MEDS ORDERED: OLANZapine 10 MG VIAL IM ONE ×2 (17:43→22:31)
[2017-03-03] MEDS ORDERED: WATER FOR INJECTION,STERILE 10 ML ONE (17:49)
[2017-03-04] MEDS: PROPOFOL 1000 MG/100 ML 100 ML IV SCH (02:56)
[2017-03-04 05:49] LABS: BASOPHILS % (AUTO) 0.5 %; EOSINOPHILS # (AUTO) 0.2 10^3/uL (0.0-0.7); EOSINOPHILS % (AUTO) 3.3 %; HCT - HEMATOCRIT 31.1 % (37.0-47.0); HGB - HEMOGLOBIN 10.3 g/dL (12.0-16.0); LYMPHOCYTES # (AUTO) 1.3 10^3/uL (1.5-3.5); LYMPHOCYTES % (AUTO) 23.8 %; MEAN CORPUSCULAR HEMOGLOBIN 30.9 pg (27.0-31.0); MEAN CORPUSCULAR VOLUME 93.6 fL (81.0-99.0); MEAN PLATELET VOLUME 7.4 fL (7.9-10.8); MONOCYTES # (AUTO) 0.5 10^3/uL (0.0-1.0); MONOCYTES % (AUTO) 8.1 %; NEUTROPHILS # (AUTO) 3.6 10^3/uL (1.5-6.6); NEUTROPHILS % (AUTO) 64.3 %; RED BLOOD COUNT 3.32 10^6/uL (4.20-5.40); RED CELL DISTRIBUTION WIDTH 14.5 % (12.0-15.0); UNCORRECTED WHITE BLOOD COUNT 5.6 x10^3/uL; WHITE BLOOD COUNT 5.6 x10^3/uL (4.8-10.8)
[2017-03-04 05:59] LABS: ALBUMIN/GLOBULIN RATIO 1.3 (1.0-2.2); BILIRUBIN,TOTAL 0.5 mg/dL (0.2-1.0); CALCIUM 8.1 mg/dL (8.5-10.3); CREATININE 0.7 mg/dL (0.4-1.0); POTASSIUM 3.7 mmol/L (3.5-5.0); TOTAL PROTEIN 5.4 g/dL (6.7-8.2)
[2017-03-04] MEDS: SODIUM CHLORIDE FLUSH 0.9% 10 ML SYRINGE IVP SCH ×3 (06:00→20:00)
[2017-03-04] MEDS: PANTOPRAZOLE 40 MG VIAL IVP SCH (06:00)
--- NOTE | 2017-03-04 08:58 | PROVIDER PROGRESS NOTE ---
Assessment/Plan - Problem List (1) Overdose Assessment/Plan: Jonna is improving. She hs recent and short term memory problems. Examples 1. not able to remember her breakast items. 2. does not remember events leading up to her OD. (2) Coma Assessment/Plan: She has improved as noted above. She is not displaying the visual hallucinations or paranoia like last roel. - Current Meds Current Meds: Current Medications Generic Name Dose Route Start Last Admin Trade Name Freq PRN Reason Stop Dose Admin Chlorhexidine Gluconate 15 ml 03/01/17 09:00 03/03/17 19:52 Peridex PO 15 ml BID NATHAN Administration Propofol 100 mls @ 1.701 mls/hr 03/01/17 03:00 03/04/17 02:56 Diprivan IV Not Given TITR NATHAN Protocol 5 MCG/KG/MIN Sodium Chloride 1,000 mls @ 83.333 mls/hr 03/02/17 07:00 03/03/17 19:51 Normal Saline 0.9% IV 83.333 mls/hr .Q12H NATHAN Administration Lorazepam 1 mg 03/01/17 14:58 03/03/17 23:38 Ativan Inj IVP 1 mg Q1HR PRN Administration Anxiety Morphine Sulfate 2 mg 03/01/17 02:43 03/02/17 21:46 Morphine IVP 2 mg Q1H PRN Administration Discomfort Pantoprazole Sodium 40 mg 03/01/17 07:00 03/04/17 06:00 Protonix IVP 40 mg QDAC NATHAN Administration Polyethylene Glycol 17 gm 03/03/17 09:00 03/03/17 08:30 Miralax PO Not Given DAILY NATHAN Sodium Chloride 10 ml 03/01/17 02:32 03/02/17 08:20 Normal Saline Flush 0.9% IVP 10 ml PRN PRN Administration NEEDED PER PROVIDER ORDERS Sodium Chloride 10 ml 03/01/17 06:00 03/04/17 06:00 Normal Saline Flush 0.9% IVP 10 ml Q8HR NATHAN Administration - Lab Result Fish Bone Diagrams: 03/04/17 04:57 03/04/17 04:57 - Additional Planning My Orders: My Active Orders 03/03/17 09:00 Polyethylene Glycol 3350 [Miralax] 17 gm PO DAILY 03/03/17 Lunch DIET [Regular Diet] [DIET] 03/04/17 Evaluate and Treat OT [OT] Routine Evaluate and Treat PT [PT] Routine 03/04/17 Lunch Regular Diet [DIET] Subjective - Subjective Patient Reports: Feeling Better, Resting Comfortably Objective Vital Signs: Vital Signs - 24 hr 03/03/17 03/03/17 03/03/17 09:20 10:00 10:57 Temperature Heart Rate 78 Heart Rate [ 75 75 Monitoring electrodes] Respiratory 20 19 18 Rate Blood Pressure 122/66 126/74 [Left Brachial artery] O2 Saturation 99 97 03/03/17 03/03/17 03/03/17 12:00 12:52 13:51 Temperature Heart Rate Heart Rate [ 78 81 76 Monitoring electrodes] Respiratory 22 23 19 Rate Blood Pressure 135/79 H 118/62 140/69 H [Left Brachial artery] O2 Saturation 97 96 99 03/03/17 03/03/17 03/03/17 14:51 16:00 17:00 Temperature 36.6 C 36.7 C Heart Rate Heart Rate [ 76 81 88 Monitoring electrodes] Respiratory 21 16 17 Rate Blood Pressure 134/70 H 122/87 H 119/77 [Left Brachial artery] O2 Saturation 98 98 95 03/03/17 03/03/17 03/03/17 18:00 19:00 19:58 Temperature 36.6 C Heart Rate 81 Heart Rate [ 88 81 82 Monitoring electrodes] Respiratory 22 16 19 Rate Blood Pressure 127/66 127/66 [Left Brachial artery] O2 Saturation 95 94 94 03/03/17 03/03/17 03/03/17 20:50 22:00 23:00 Temperature 36.6 C Heart Rate Heart Rate [ 81 76 72 Monitoring electrodes] Respiratory 20 20 20 Rate Blood Pressure 152/80 H 138/72 H 127/55 L [Left Brachial artery] O2 Saturation 92 92 92 03/04/17 03/04/17 03/04/17 00:00 01:00 01:49 Temperature Heart Rate Heart Rate [ 68 64 65 Monitoring electrodes] Respiratory 18 18 14 Rate Blood Pressure 148/74 H 148/74 H 149/73 H [Left Brachial artery] O2 Saturation 91 L 91 L 03/04/17 03/04/17 03/04/17 02:55 03:57 04:54 Temperature 36.4 C L Heart Rate Heart Rate [ 64 64 61 Monitoring electrodes] Respiratory 18 14 14 Rate Blood Pressure 137/70 H 148/73 H 138/71 H [Left Brachial artery] O2 Saturation 91 L 03/04/17 03/04/17 03/04/17 06:00 06:43 07:55 Temperature 36.5 C Heart Rate Heart Rate [ 71 62 84 Monitoring electrodes] Respiratory 15 16 19 Rate Blood Pressure 137/72 H 161/78 H 141/78 H [Left Brachial artery] O2 Saturation 92 91 L 92 Oxygen O2 Source Room air I&O (Last 24 Hrs): Intake and Output Totals x24h 03/02/17 03/03/17 03/04/17 23:59 23:59 23:59 Intake Total 3200 3682 684 Output Total 4148 5905 1115 [facility] -632 -2223 -027 General: Alert, Cooperative HEENT: PERRLA, EOMI Neck: No JVD, No thyromegaly Neuro: Alert, Non Focal Cardiovascular: Regular rate, No murmurs Respiratory: No respiratory distress, Breath sounds nml Abdomen: Normal bowel sounds, Soft Skin: No rashes, No breakdown - Results Results: Laboratory Results WBC 5.6 x10^3/uL (4.8-10.8) 03/04/17 04:57 RBC 3.32 10^6/uL (4.20-5.40) L 03/04/17 04:57 Hgb 10.3 g/dL (12.0-16.0) L 03/04/17 04:57 Hct 31.1 % (37.0-47.0) L 03/04/17 04:57 MCV 93.6 fL (81.0-99.0) 03/04/17 04:57 MCH 30.9 pg (27.0-31.0) 03/04/17 04:57 MCHC 33.0 g/dL (32.0-36.0) 03/04/17 04:57 RDW 14.5 % (12.0-15.0) 03/04/17 04:57 Plt Count 152 10^3/uL (130-450) 03/04/17 04:57 MPV 7.4 fL (7.9-10.8) L 03/04/17 04:57 Neut # 3.6 10^3/uL (1.5-6.6) 03/04/17 04:57 Lymph # 1.3 10^3/uL (1.5-3.5) L 03/04/17 04:57 [place] # 0.5 10^3/uL (0.0-1.0) 03/04/17 04:57 Eos # 0.2 10^3/uL (0.0-0.7) 03/04/17 04:57 Baso # 0.0 10^3/uL (0.0-0.1) 03/04/17 04:57 Absolute Nucleated RBC 0.00 x10^3/uL 03/04/17 04:57 Nucleated RBCs 0.0 /100WBC 03/04/17 04:57 Bld Gas Analysis Time 0803/02/17 08:20 Sample Site RIGHT FEMORAL 03/02/17 08:20 Patient Temperature 36.0 CELSIUS 03/01/17 05:20 ABG pH 7.52 (7.35-7.45) H 03/02/17 08:20 ABG pCO2 35 mmHg (34-45) 03/02/17 08:20 ABG pO2 27 mmHg (80-100) L* 03/02/17 08:20 ABG HCO3 28.0 mmol/L (22.0-26.0) H 03/02/17 08:20 ABG Total CO2 29.0 MMOL/L (21.0-29.0) 03/02/17 08:20 ABG O2 Saturation 53 % (94-98) L* 03/02/17 08:20 ABG Oximetry Spot Check 98 % 03/02/17 08:20 ABG Base Excess 5.0 mmol/L (-2.0-3.0) H 03/02/17 08:20 Kobe Test POSITIVE 03/02/17 08:20 VBG pH 7.529 (7.31-7.41) H 03/02/17 01:25 Ionized Calcium 1.01 mmol/L (1.15-1.33) L 03/02/17 01:25 Respiration Rate 16 b/min 03/02/17 08:20 O2 Delivery Device VENTILATOR 03/02/17 08:20 Vent Mode SIMV 03/02/17 08:20 FiO2 30.00 03/02/17 08:20 Tidal Volume 550 mL 03/02/17 08:20 PEEP 5 cmH2O 03/02/17 08:20 Pressure Support Vent 10 cmH2O 03/02/17 08:20 Sodium 139 mmol/L (135-145) 03/04/17 04:57 Potassium 3.7 mmol/L (3.5-5.0) 03/04/17 04:57 Chloride 105 mmol/L (101-111) 03/04/17 04:57 Carbon Dioxide 27 mmol/L (21-32) 03/04/17 04:57 Anion Gap 7.0 (6-13) 03/04/17 04:57 BUN 9 mg/dL (6-20) 03/04/17 04:57 Creatinine 0.7 mg/dL (0.4-1.0) 03/04/17 04:57 Estimated GFR (MDRD) 84 (>89) L 03/04/17 04:57 Glucose 95 mg/dL (70-100) 03/04/17 04:57 Lactic Acid 2.7 mmol/L (0.5-2.2) H 03/01/17 06:45 Calcium 8.1 mg/dL (8.5-10.3) L 03/04/17 04:57 Ionized Calcium YES 03/01/17 08:35 Phosphorus 3.2 mg/dL (2.5-4.6) 03/01/17 14:40 Magnesium 2.3 mg/dL (1.7-2.8) 03/01/17 14:40 Total Bilirubin 0.5 mg/dL (0.2-1.0) 03/04/17 04:57 AST 18 IU/L (10-42) 03/04/17 04:57 ALT 22 IU/L (10-60) 03/04/17 04:57 Alkaline Phosphatase 62 IU/L (42-121) 03/04/17 04:57 Total Creatine Kinase 55 IU/L (22-269) 03/01/17 00:50 CK-MB (CK-2) 1.4 ng/mL (0.6-6.3) 03/01/17 02:59 Troponin I < 0.04 ng/mL (<0.49) 03/01/17 14:40 Total Protein 5.4 g/dL (6.7-8.2) L 03/04/17 04:57 Albumin 3.0 g/dL (3.2-5.5) L 03/04/17 04:57 Globulin 2.4 g/dL (2.1-4.2) 03/04/17 04:57 Albumin/Globulin Ratio 1.3 (1.0-2.2) 03/04/17 04:57 Lipase 72 U/L (22-51) H 03/01/17 00:50 Urine Color YELLOW 03/01/17 05:20 Urine Clarity CLEAR (CLEAR) 03/01/17 05:20 Urine pH 8.5 PH (5.0-7.5) H 03/01/17 05:20 Ur Specific [place] 1.015 (1.002-1.030) 03/01/17 05:20 Urine Protein NEGATIVE mg/dL (NEGATIVE) 03/01/17 05:20 Urine Glucose (UA) NEGATIVE mg/dL (NEGATIVE) 03/01/17 05:20 Urine Ketones 40 mg/dL (NEGATIVE) H 03/01/17 05:20 Urine Occult Blood TRACE-LYSE (NEGATIVE) 03/01/17 05:20 Urine Nitrite NEGATIVE (NEGATIVE) 03/01/17 05:20 Urine Bilirubin NEGATIVE (NEGATIVE) 03/01/17 05:20 Urine Urobilinogen 0.2 (NORMAL) E.U./dL (NORMAL) 03/01/17 05:20 Ur Leukocyte Esterase NEGATIVE (NEGATIVE) 03/01/17 05:20 Urine RBC 0-5 /HPF (0-5) 03/01/17 05:20 Urine WBC 0-3 /HPF (0-5) 03/01/17 05:20 Ur Squamous Epith Cells RARE Squamous (<= Few) 03/01/17 05:20 Urine Bacteria None Seen /HPF (None Seen) 03/01/17 05:20 Urine Mucus Moderate Strands 03/01/17 01:34 Ur Microscopic Review INDICATED 03/01/17 01:34 Urine Culture Comments NOT INDICATED 03/01/17 05:20 Urine Opiates Screen NEGATIVE (NEGATIVE) 03/01/17 01:34 Ur Oxycodone Screen NEGATIVE (NEGATIVE) 03/01/17 01:34 Urine Methadone Screen NEGATIVE (NEGATIVE) 03/01/17 01:34 Ur Propoxyphene Screen NEGATIVE (NEGATIVE) 03/01/17 01:34 Ur Barbiturates Screen NEGATIVE (NEGATIVE) 03/01/17 01:34 Ur Tricyclics Screen POSITIVE (NEGATIVE) H 03/01/17 01:34 Ur Phencyclidine Scrn NEGATIVE (NEGATIVE) 03/01/17 01:34 Ur Amphetamine Screen NEGATIVE (NEGATIVE) 03/01/17 01:34 U Methamphetamines Scrn NEGATIVE (NEGATIVE) 03/01/17 01:34 U Benzodiazepines Scrn NEGATIVE (NEGATIVE) 03/01/17 01:34 Urine Cocaine Screen NEGATIVE (NEGATIVE) 03/01/17 01:34 U Cannabinoids Screen NEGATIVE (NEGATIVE) 03/01/17 01:34 Ethyl Alcohol < 5.0 mg/dL 03/01/17 00:50
[2017-03-04] MEDS: CHLORHEXIDINE GLUCONATE 15 ML UDC PO SCH ×2 (09:09→20:00)
[2017-03-04] MEDS: POLYETHYLENE GLYCOL 3350 17 GM PACKET PO SCH (09:11)
[2017-03-04] MEDS: SODIUM CHLORIDE 0.9% 1,000 ML IV SCH (11:59)
[2017-03-04] MEDS: LORazepam 2 MG/ML SYRINGE IVP PRN ×5 (14:45→23:33)
[2017-03-04] MEDS: SODIUM CHLORIDE FLUSH 0.9% 10 ML SYRINGE IVP PRN (16:00)
--- NOTE | 2017-03-04 17:13 | MRI Preliminary Report ---
Exam: MRI Brain W/O Impression: No acute infarct, mass lesion, or other discrete acute parenchymal process identified. SITE ID: [id number]
--- NOTE | 2017-03-04 17:16 | MRI Report ---
EXAM: MRI BRAIN WITHOUT CONTRAST COMPARISON: CT head, 03/01/2017. CLINICAL HISTORY: Encephalopathy TECHNIQUE: Multiplanar multisequence imaging is performed through the head without contrast. FINDINGS: Diffusion-weighted imaging shows no acute infarct. Gradient sequence shows no evident prior parenchymal hemorrhage. T2 FLAIR again shows multifocal white matter T2 prolongation, no mass lesions. T2 spin echo imaging shows No posterior fossa masses. No prior posterior fossa infarcts. No abnormal elevated T1 signal in the brain parenchyma. Pituitary fossa, clivus and foramen magnum are unremarkable. Visualized orbits, paranasal sinuses and mastoids are unremarkable. No calvarial signal abnormality. Impression: No acute infarct, mass lesion, or other discrete acute parenchymal process identified. Referring Provider Line: [phone] SITE ID: [id number]
[2017-03-04] MEDS ORDERED: OLANZapine 10 MG VIAL IM PRN (22:03)
[2017-03-04] MEDS ORDERED: WATER FOR INJECTION,STERILE 10 ML ONE (22:06)
[2017-03-05] MEDS: LORazepam 2 MG/ML SYRINGE IVP PRN (00:27)
[2017-03-05] MEDS: PROPOFOL 1000 MG/100 ML 100 ML IV SCH (03:44)
[2017-03-05 04:42] LABS: BASOPHILS % (AUTO) 0.4 %; EOSINOPHILS # (AUTO) 0.2 10^3/uL (0.0-0.7); EOSINOPHILS % (AUTO) 4.3 %; HCT - HEMATOCRIT 33.3 % (37.0-47.0); HGB - HEMOGLOBIN 11.1 g/dL (12.0-16.0); LYMPHOCYTES # (AUTO) 1.3 10^3/uL (1.5-3.5); LYMPHOCYTES % (AUTO) 24.6 %; MEAN CORPUSCULAR HEMOGLOBIN 31.1 pg (27.0-31.0); MEAN CORPUSCULAR HGB CONC 33.3 g/dL (32.0-36.0); MEAN CORPUSCULAR VOLUME 93.2 fL (81.0-99.0); MEAN PLATELET VOLUME 7.2 fL (7.9-10.8); MONOCYTES # (AUTO) 0.5 10^3/uL (0.0-1.0); MONOCYTES % (AUTO) 9.6 %; NEUTROPHILS # (AUTO) 3.3 10^3/uL (1.5-6.6); NEUTROPHILS % (AUTO) 61.1 %; RED BLOOD COUNT 3.58 10^6/uL (4.20-5.40); RED CELL DISTRIBUTION WIDTH 14.7 % (12.0-15.0); UNCORRECTED WHITE BLOOD COUNT 5.4 x10^3/uL; WHITE BLOOD COUNT 5.4 x10^3/uL (4.8-10.8)
[2017-03-05 04:55] LABS: ALBUMIN/GLOBULIN RATIO 1.1 (1.0-2.2); BILIRUBIN,TOTAL 0.5 mg/dL (0.2-1.0); BUN - BLOOD UREA NITROGEN 10 mg/dL (6-20); CALCIUM 8.5 mg/dL (8.5-10.3); CARBON DIOXIDE - CO2 28 mmol/L (21-32); CHLORIDE 106 mmol/L (101-111); CREATININE 0.8 mg/dL (0.4-1.0); GFR - MDRD 72 (>89); GLUCOSE 105 mg/dL (70-100); POTASSIUM 3.7 mmol/L (3.5-5.0); SODIUM 140 mmol/L (135-145); TOTAL PROTEIN 6.2 g/dL (6.7-8.2)
[2017-03-05 05:10] LABS: MAGNESIUM 1.7 mg/dL (1.7-2.8); PHOSPHORUS 4.2 mg/dL (2.5-4.6)
[2017-03-05] MEDS ORDERED: MAGNESIUM SULFATE 2 GRAM 50 ML IV ONE (05:17)
[2017-03-05] MEDS: SODIUM CHLORIDE FLUSH 0.9% 10 ML SYRINGE IVP SCH ×3 (05:46→23:13)
[2017-03-05] MEDS: SODIUM CHLORIDE FLUSH 0.9% 10 ML SYRINGE IVP PRN (05:47)
[2017-03-05] MEDS: PANTOPRAZOLE 40 MG VIAL IVP SCH (05:49)
[2017-03-05] MEDS ORDERED: POTASSIUM CHLORIDE 20 MEQ/15 ML UDC PO ONE (09:00)
[2017-03-05] MEDS: CHLORHEXIDINE GLUCONATE 15 ML UDC PO SCH ×2 (09:48→22:02)
[2017-03-05] MEDS: POLYETHYLENE GLYCOL 3350 17 GM PACKET PO SCH (09:48)
[2017-03-05] MEDS: DOCUSATE SODIUM 250 MG CAPSULE PO SCH (09:48)
[2017-03-05] MEDS: SENNA 8.6 MG TABLET PO SCH (09:49)
--- NOTE | 2017-03-05 15:55 | PROVIDER PROGRESS NOTE ---
Assessment/Plan - Problem List (1) Overdose Assessment/Plan: She is back to baseline and Medically cleared. She is apprpriate, cogent expresses her understanding of the serious life threatening condition in which she arrived to the Hospital. Her motor control and her cognition are back to bseline with the xceotion of some amnesia. (2) Coma Assessment/Plan: Coma has cleared. He has been evaluated by Soc work and they are working on a Psych placement fo the serious, near fatal suicide attempt. - Current Meds Current Meds: Current Medications Generic Name Dose Route Start Last Admin Trade Name Freq PRN Reason Stop Dose Admin Chlorhexidine Gluconate 15 ml 03/01/17 09:00 03/05/17 09:48 Peridex PO Not Given BID NATHAN Docusate Sodium 250 - 500 mg 03/05/17 09:00 03/05/17 09:48 Colace 250mg Capsule PO 500 mg DAILY NATHAN Administration Propofol 100 mls @ 1.701 mls/hr 03/01/17 03:00 03/05/17 03:44 Diprivan IV Not Given TITR NATHAN Protocol 5 MCG/KG/MIN Lorazepam 1 mg 03/01/17 14:58 03/05/17 00:27 Ativan Inj IVP 1 mg Q1HR PRN Administration Anxiety Morphine Sulfate 2 mg 03/01/17 02:43 03/02/17 21:46 Morphine IVP 2 mg Q1H PRN Administration Discomfort Olanzapine 10 mg 03/04/17 22:03 03/04/17 22:35 Zyprexa Im IM 10 mg QPM PRN Administration Agitation Pantoprazole Sodium 40 mg 03/01/17 07:00 03/05/17 05:49 Protonix IVP 40 mg QDAC NATHAN Administration Polyethylene Glycol 17 gm 03/03/17 09:00 03/05/17 09:48 Miralax PO 17 gm DAILY NATHAN Administration Senna 8.6 - 17.2 mg 03/05/17 09:00 03/05/17 09:49 Senokot PO 17.2 mg DAILY NATHAN Administration Sodium Chloride 10 ml 03/01/17 02:32 03/05/17 05:47 Normal Saline Flush 0.9% IVP 10 ml PRN PRN Administration NEEDED PER PROVIDER ORDERS Sodium Chloride 10 ml 03/01/17 06:00 03/05/17 14:57 Normal Saline Flush 0.9% IVP 10 ml Q8HR NATHAN Administration - Lab Result Fish Bone Diagrams: 03/05/17 04:29 03/05/17 04:29 - Additional Planning My Orders: My Active Orders 03/05/17 09:00 Docusate Sodium 250Mg Capsule [Colace 250Mg Capsule] 250 - 500 mg PO DAILY Senna [Senokot] 8.6 - 17.2 mg PO DAILY 03/06/17 05:00 CBC - COMP BLD CT W/AUTO DIFF [HEME] DAILYLAB COMPREHENSIVE METABOLIC PANEL [CHEM] DAILYLAB MAGNESIUM [CHEM] DAILYLAB PHOSPHORUS [CHEM] DAILYLAB Subjective - Subjective Patient Reports: Feeling Better, Resting Comfortably Nursing Reports: No Complaints Objective Vital Signs: Vital Signs - 24 hr 03/04/17 03/04/17 03/04/17 16:00 17:00 18:00 Temperature 36.6 C Heart Rate Heart Rate [ 78 85 87 Monitoring electrodes] Respiratory 18 12 22 Rate Blood Pressure 163/57 H 142/79 H 158/90 H [Left Brachial artery] O2 Saturation 95 94 92 03/04/17 03/04/17 03/04/17 19:00 19:41 21:10 Temperature 36.8 C Heart Rate 77 Heart Rate [ 77 81 77 Monitoring electrodes] Respiratory 20 18 21 Rate Blood Pressure 141/81 H 137/81 H 145/82 H [Left Brachial artery] O2 Saturation 95 94 03/04/17 03/04/17 03/04/17 22:15 23:10 23:56 Temperature 36.8 C Heart Rate Heart Rate [ 98 94 80 Monitoring electrodes] Respiratory 23 21 20 Rate Blood Pressure 145/86 H 138/99 H 138/99 H [Left Brachial artery] O2 Saturation 93 94 03/05/17 03/05/17 03/05/17 01:10 02:00 03:00 Temperature 36.9 C Heart Rate Heart Rate [ 65 64 66 Monitoring electrodes] Respiratory 16 16 16 Rate Blood Pressure 87/47 L 87/47 L 89/53 L [Left Brachial artery] O2 Saturation 92 03/05/17 03/05/17 03/05/17 04:00 05:00 05:56 Temperature Heart Rate Heart Rate [ 64 65 67 Monitoring electrodes] Respiratory 17 16 16 Rate Blood Pressure 89/53 L 106/52 L 106/52 L [Left Brachial artery] O2 Saturation 92 94 03/05/17 03/05/17 03/05/17 06:52 07:54 08:12 Temperature 36.7 C Heart Rate Heart Rate [ 70 67 71 Monitoring electrodes] Respiratory 16 15 13 Rate Blood Pressure 89/50 L 78/43 L 118/67 [Left Brachial artery] O2 Saturation 93 03/05/17 03/05/17 03/05/17 09:00 10:12 11:00 Temperature 36.5 C 36.7 C Heart Rate Heart Rate [ 70 84 85 Monitoring electrodes] Respiratory 16 17 20 Rate Blood Pressure 95/55 L 95/76 112/60 [Left Brachial artery] O2 Saturation 92 89 L 90 L 03/05/17 03/05/17 03/05/17 12:00 13:00 14:00 Temperature Heart Rate Heart Rate [ 100 85 85 Monitoring electrodes] Respiratory 24 18 20 Rate Blood Pressure 108/59 L 120/91 H 100/65 [Left Brachial artery] O2 Saturation 92 94 95 03/05/17 15:00 Temperature Heart Rate Heart Rate [ 79 Monitoring electrodes] Respiratory 23 Rate Blood Pressure 108/44 L [Left Brachial artery] O2 Saturation 92 Oxygen O2 Source [With Activity] Room air O2 Source Room air I&O (Last 24 Hrs): Intake and Output Totals x24h 03/03/17 03/04/17 03/05/17 23:59 23:59 23:59 Intake Total 3682 4299 1670 Output Total 5907 5565 1215 Balance -2223 -1266 455 General: Alert, Oriented x3, Cooperative HEENT: PERRLA, EOMI Neck: No JVD, No thyromegaly Neuro: Alert, Oriented Times 3 Cardiovascular: Regular rate, No murmurs Respiratory: Chest non-tender, No respiratory distress, Breath sounds nml Abdomen: Normal bowel sounds, Soft, No tenderness - Results Results: Laboratory Results WBC 5.4 x10^3/uL (4.8-10.8) 03/05/17 04:29 RBC 3.58 10^6/uL (4.20-5.40) L 03/05/17 04:29 Hgb 11.1 g/dL (12.0-16.0) L 03/05/17 04:29 Hct 33.3 % (37.0-47.0) L 03/05/17 04:29 MCV 93.2 fL (81.0-99.0) 03/05/17 04:29 MCH 31.1 pg (27.0-31.0) H 03/05/17 04:29 MCHC 33.3 g/dL (32.0-36.0) 03/05/17 04:29 RDW 14.7 % (12.0-15.0) 03/05/17 04:29 Plt Count 165 10^3/uL (130-450) 03/05/17 04:29 MPV 7.2 fL (7.9-10.8) L 03/05/17 04:29 Neut # 3.3 10^3/uL (1.5-6.6) 03/05/17 04:29 Lymph # 1.3 10^3/uL (1.5-3.5) L 03/05/17 04:29 [place] # 0.5 10^3/uL (0.0-1.0) 03/05/17 04:29 Eos # 0.2 10^3/uL (0.0-0.7) 03/05/17 04:29 Baso # 0.0 10^3/uL (0.0-0.1) 03/05/17 04:29 Absolute Nucleated RBC 0.00 x10^3/uL 03/05/17 04:29 Nucleated RBCs 0.0 /100WBC 03/05/17 04:29 Bld Gas Analysis Time 81903/02/17 08:20 Sample Site RIGHT FEMORAL 03/02/17 08:20 Patient Temperature 36.0 CELSIUS 03/01/17 05:20 ABG pH 7.52 (7.35-7.45) H 03/02/17 08:20 ABG pCO2 35 mmHg (34-45) 03/02/17 08:20 ABG pO2 27 mmHg (80-100) L* 03/02/17 08:20 ABG HCO3 28.0 mmol/L (22.0-26.0) H 03/02/17 08:20 ABG Total CO2 29.0 MMOL/L (21.0-29.0) 03/02/17 08:20 ABG O2 Saturation 53 % (94-98) L* 03/02/17 08:20 ABG Oximetry Spot Check 98 % 03/02/17 08:20 ABG Base Excess 5.0 mmol/L (-2.0-3.0) H 03/02/17 08:20 Kobe Test POSITIVE 03/02/17 08:20 VBG pH 7.529 (7.31-7.41) H 03/02/17 01:25 Ionized Calcium 1.01 mmol/L (1.15-1.33) L 03/02/17 01:25 Respiration Rate 16 b/min 03/02/17 08:20 O2 Delivery Device VENTILATOR 03/02/17 08:20 Vent Mode SIMV 03/02/17 08:20 FiO2 30.00 03/02/17 08:20 Tidal Volume 550 mL 03/02/17 08:20 PEEP 5 cmH2O 03/02/17 08:20 Pressure Support Vent 10 cmH2O 03/02/17 08:20 Sodium 140 mmol/L (135-145) 03/05/17 04:29 Potassium 3.7 mmol/L (3.5-5.0) 03/05/17 04:29 Chloride 106 mmol/L (101-111) 03/05/17 04:29 Carbon Dioxide 28 mmol/L (21-32) 03/05/17 04:29 Anion Gap 6.0 (6-13) 03/05/17 04:29 BUN 10 mg/dL (6-20) 03/05/17 04:29 Creatinine 0.8 mg/dL (0.4-1.0) 03/05/17 04:29 Estimated GFR (MDRD) 72 (>89) L 03/05/17 04:29 Glucose 105 mg/dL (70-100) H 03/05/17 04:29 Lactic Acid 2.7 mmol/L (0.5-2.2) H 03/01/17 06:45 Calcium 8.5 mg/dL (8.5-10.3) 03/05/17 04:29 Ionized Calcium NO 03/05/17 04:29 Phosphorus 4.2 mg/dL (2.5-4.6) 03/05/17 04:29 Magnesium 1.7 mg/dL (1.7-2.8) 03/05/17 04:29 Total Bilirubin 0.5 mg/dL (0.2-1.0) 03/05/17 04:29 AST 18 IU/L (10-42) 03/05/17 04:29 ALT 22 IU/L (10-60) 03/05/17 04:29 Alkaline Phosphatase 68 IU/L (42-121) 03/05/17 04:29 Total Creatine Kinase 55 IU/L (22-269) 03/01/17 00:50 CK-MB (CK-2) 1.4 ng/mL (0.6-6.3) 03/01/17 02:59 Troponin I < 0.04 ng/mL (<0.49) 03/01/17 14:40 Total Protein 6.2 g/dL (6.7-8.2) L 03/05/17 04:29 Albumin 3.3 g/dL (3.2-5.5) 03/05/17 04:29 Globulin 2.9 g/dL (2.1-4.2) 03/05/17 04:29 Albumin/Globulin Ratio 1.1 (1.0-2.2) 03/05/17 04:29 Lipase 72 U/L (22-51) H 03/01/17 00:50 Urine Color YELLOW 03/01/17 05:20 Urine Clarity CLEAR (CLEAR) 03/01/17 05:20 Urine pH 8.5 PH (5.0-7.5) H 03/01/17 05:20 Ur Specific [place] 1.015 (1.002-1.030) 03/01/17 05:20 Urine Protein NEGATIVE mg/dL (NEGATIVE) 03/01/17 05:20 Urine Glucose (UA) NEGATIVE mg/dL (NEGATIVE) 03/01/17 05:20 Urine Ketones 40 mg/dL (NEGATIVE) H 03/01/17 05:20 Urine Occult Blood TRACE-LYSE (NEGATIVE) 03/01/17 05:20 Urine Nitrite NEGATIVE (NEGATIVE) 03/01/17 05:20 Urine Bilirubin NEGATIVE (NEGATIVE) 03/01/17 05:20 Urine Urobilinogen 0.2 (NORMAL) E.U./dL (NORMAL) 03/01/17 05:20 Ur Leukocyte Esterase NEGATIVE (NEGATIVE) 03/01/17 05:20 Urine RBC 0-5 /HPF (0-5) 03/01/17 05:20 Urine WBC 0-3 /HPF (0-5) 03/01/17 05:20 Ur Squamous Epith Cells RARE Squamous (<= Few) 03/01/17 05:20 Urine Bacteria None Seen /HPF (None Seen) 03/01/17 05:20 Urine Mucus Moderate Strands 03/01/17 01:34 Ur Microscopic Review INDICATED 03/01/17 01:34 Urine Culture Comments NOT INDICATED 03/01/17 05:20 Urine Opiates Screen NEGATIVE (NEGATIVE) 03/01/17 01:34 Ur Oxycodone Screen NEGATIVE (NEGATIVE) 03/01/17 01:34 Urine Methadone Screen NEGATIVE (NEGATIVE) 03/01/17 01:34 Ur Propoxyphene Screen NEGATIVE (NEGATIVE) 03/01/17 01:34 Ur Barbiturates Screen NEGATIVE (NEGATIVE) 03/01/17 01:34 Ur Tricyclics Screen POSITIVE (NEGATIVE) H 03/01/17 01:34 Ur Phencyclidine Scrn NEGATIVE (NEGATIVE) 03/01/17 01:34 Ur Amphetamine Screen NEGATIVE (NEGATIVE) 03/01/17 01:34 U Methamphetamines Scrn NEGATIVE (NEGATIVE) 03/01/17 01:34 U Benzodiazepines Scrn NEGATIVE (NEGATIVE) 03/01/17 01:34 Urine Cocaine Screen NEGATIVE (NEGATIVE) 03/01/17 01:34 U Cannabinoids Screen NEGATIVE (NEGATIVE) 03/01/17 01:34 Ethyl Alcohol < 5.0 mg/dL 03/01/17 00:50
[2017-03-06 05:04] LABS: BASOPHILS % (AUTO) 0.8 %; EOSINOPHILS # (AUTO) 0.2 10^3/uL (0.0-0.7); EOSINOPHILS % (AUTO) 4.2 %; HCT - HEMATOCRIT 34.3 % (37.0-47.0); HGB - HEMOGLOBIN 11.6 g/dL (12.0-16.0); LYMPHOCYTES # (AUTO) 1.7 10^3/uL (1.5-3.5); LYMPHOCYTES % (AUTO) 28.8 %; MEAN CORPUSCULAR HGB CONC 33.8 g/dL (32.0-36.0); MEAN CORPUSCULAR VOLUME 91.6 fL (81.0-99.0); MEAN PLATELET VOLUME 7.2 fL (7.9-10.8); MONOCYTES # (AUTO) 0.7 10^3/uL (0.0-1.0); NEUTROPHILS # (AUTO) 3.2 10^3/uL (1.5-6.6); NEUTROPHILS % (AUTO) 54.2 %; RED BLOOD COUNT 3.75 10^6/uL (4.20-5.40); RED CELL DISTRIBUTION WIDTH 14.6 % (12.0-15.0); UNCORRECTED WHITE BLOOD COUNT 5.9 x10^3/uL; WHITE BLOOD COUNT 5.9 x10^3/uL (4.8-10.8)
[2017-03-06 05:27] LABS: ALBUMIN/GLOBULIN RATIO 1.1 (1.0-2.2); BILIRUBIN,TOTAL 0.2 mg/dL (0.2-1.0); CALCIUM 8.6 mg/dL (8.5-10.3); CREATININE 0.9 mg/dL (0.4-1.0); PHOSPHORUS 4.7 mg/dL (2.5-4.6); POTASSIUM 4.2 mmol/L (3.5-5.0); TOTAL PROTEIN 6.5 g/dL (6.7-8.2)
[2017-03-06] MEDS: PROPOFOL 1000 MG/100 ML 100 ML IV SCH (06:22)
[2017-03-06] MEDS: PANTOPRAZOLE 40 MG VIAL IVP SCH (06:30)
[2017-03-06] MEDS: SODIUM CHLORIDE FLUSH 0.9% 10 ML SYRINGE IVP SCH ×3 (06:31→21:05)
--- NOTE | 2017-03-06 07:35 | PROVIDER PROGRESS NOTE ---
Subjective - Prog Note Date Prog Note Date: 03/06/17 Prog Note Time: 12:51 - Subjective Subjective: she is medically stable now but she is ataxic. still needing CGA with 200 feet of walking and has diminished safety awareness. also needs help with ADL's. Current Medications - Current Medications Current Medications: Active Medications Docusate Sodium (Colace 250mg Capsule) 250 - 500 mg PO DAILY NATHAN Last Admin: 03/05/17 09:48 Dose: 500 mg Propofol (Diprivan) 100 mls @ 1.701 mls/hr IV TITR NATHAN; 5 MCG/KG/MIN PRN Reason: Protocol Last Admin: 03/06/17 06:22 Dose: Not Given Lorazepam (Ativan Inj) 1 mg IVP Q1HR PRN PRN Reason: Anxiety Last Admin: 03/05/17 00:27 Dose: 1 mg Morphine Sulfate (Morphine) 2 mg IVP Q1H PRN PRN Reason: Discomfort Last Admin: 03/02/17 21:46 Dose: 2 mg Olanzapine (Zyprexa Im) 10 mg IM QPM PRN PRN Reason: Agitation Last Admin: 03/04/17 22:35 Dose: 10 mg Pantoprazole Sodium (Protonix) 40 mg IVP QDAC NATHAN Last Admin: 03/06/17 06:30 Dose: 40 mg Polyethylene Glycol (Miralax) 17 gm PO DAILY NATHAN Last Admin: 03/05/17 09:48 Dose: 17 gm Senna (Senokot) 8.6 - 17.2 mg PO DAILY NATHAN Last Admin: 03/05/17 09:49 Dose: 17.2 mg Sodium Chloride (Normal Saline Flush 0.9%) 10 ml IVP PRN PRN PRN Reason: NEEDED PER PROVIDER ORDERS Last Admin: 03/05/17 05:47 Dose: 10 ml Sodium Chloride (Normal Saline Flush 0.9%) 10 ml IVP Q8HR NATHAN Last Admin: 03/06/17 06:31 Dose: 10 ml Amitriptyline HCl 25 mg PO QPM 01/02/17 Simvastatin 10 mg PO QPM 01/02/17 Venlafaxine HCl [Venlafaxine HCl ER] 75 mg PO DAILY 01/02/17 Clonazepam 0.5 mg PO DAILY PRN 03/01/17 Objective - Vital Signs/Intake & Output Reviewed Vital Signs: Yes Vital Signs: Vital Signs Temp Pulse Resp BP Pulse Ox 03/06/17 07:29 36.0 C L 64 14 110/65 95 03/06/17 07:00 67 12 122/68 95 03/06/17 06:00 36.5 C 74 12 108/64 94 03/06/17 05:00 36.6 C 81 24 126/73 90 L 03/06/17 04:00 36.5 C 68 14 91/51 L Intake & Output: Intake & Output 03/03/17 03/04/17 03/05/17 03/06/17 23:59 23:59 23:59 23:59 Intake Total 368 4292 2580 250 Output Total 3423 1660 4013 Balance -8194 -9708 365 250 - Objective General Appearance: positive: No acute distress, Alert Eyes Bilateral: positive: PERRL, EOMI ENT: positive: Pharynx nml Neck: positive: No JVD. negative: Lymphadenopathy (R), Lymphadenopathy (L), Stiff neck, Carotid bruit Respiratory: positive: Chest non-tender. negative: Wheezes, Rales, Rhonchi Cardiovascular: positive: Regular rate & rhythm. negative: Gallop/S4, Friction rub Abdomen: positive: Non-tender, No organomegaly, Nml bowel sounds. negative: Guarding, Rebound Extremities: positive: Full ROM, No pedal edema Neurologic/Psychiatric: positive: Oriented x3, CN's nml (2-12), Weakness, Slurred/abnml speech (at times). negative: Motor nml (jerking movements) - Lab Results Fish Bones: 03/06/17 04:45 03/06/17 04:45 Other Labs: Lab Results x24hrs 03/06/17 03/06/17 Range/Units 04:45 04:45 WBC 5.9 (4.8-10.8) x10^3/uL RBC 3.75 L (4.20-5.40) 10^6/uL Hgb 11.6 L (12.0-16.0) g/dL Hct 34.3 L (37.0-47.0) % MCV 91.6 (81.0-99.0) fL MCH 31.0 (27.0-31.0) pg MCHC 33.8 (32.0-36.0) g/dL RDW 14.6 (12.0-15.0) % Plt Count 195 (130-450) 10^3/uL MPV 7.2 L (7.9-10.8) fL Neut # 3.2 (1.5-6.6) 10^3/uL Lymph # 1.7 (1.5-3.5) 10^3/uL [place] # 0.7 (0.0-1.0) 10^3/uL Eos # 0.2 (0.0-0.7) 10^3/uL Baso # 0.0 (0.0-0.1) 10^3/uL Absolute Nucleated RBC 0.00 x10^3/uL Nucleated RBCs 0.0 /100WBC Sodium 138 (135-145) mmol/L Potassium 4.2 (3.5-5.0) mmol/L Chloride 103 (101-111) mmol/L Carbon Dioxide 28 (21-32) mmol/L Anion Gap 7.0 (6-13) BUN 15 (6-20) mg/dL Creatinine 0.9 (0.4-1.0) mg/dL Estimated GFR (MDRD) 63 L (>89) Glucose 100 (70-100) mg/dL Calcium 8.6 (8.5-10.3) mg/dL Phosphorus 4.7 H (2.5-4.6) mg/dL Magnesium 2.0 (1.7-2.8) mg/dL Total Bilirubin 0.2 (0.2-1.0) mg/dL AST 15 (10-42) IU/L ALT 19 (10-60) IU/L Alkaline Phosphatase 72 (42-121) IU/L Total Protein 6.5 L (6.7-8.2) g/dL Albumin 3.4 (3.2-5.5) g/dL Globulin 3.1 (2.1-4.2) g/dL Albumin/Globulin Ratio 1.1 (1.0-2.2) Assessment/Plan - Problem List (1) Poisoning by tricyclic antidepressant, intentional self-harm Impression: EKG and QT interval stable now. s/p bicarb drip . In ICU. transfer to floor with tele. Medically stable. she is voluntarily willing to go to inpatient unit since she is still stating suicidal intent. Qualifiers: Encounter type: initial encounter Qualified Code(s): T43.012A - Poisoning by tricyclic antidepressants, intentional self-harm, initial encounter (2) Unsteady gait Impression: with diminished safety awareness. PT/OT would like one more day of therapy before letting her go. (3) Hyperlipidemia Impression: resume simvastatin. Qualifiers: Hyperlipidemia type: pure hypercholesterolemia Qualified Code(s): E78.00 - Pure hypercholesterolemia, unspecified; E78.0 - Pure hypercholesterolemia
[2017-03-06] MEDS: POLYETHYLENE GLYCOL 3350 17 GM PACKET PO SCH (08:06)
[2017-03-06] MEDS: SENNA 8.6 MG TABLET PO SCH (08:07)
[2017-03-06] MEDS: DOCUSATE SODIUM 250 MG CAPSULE PO SCH (08:07)
[2017-03-06] MEDS ORDERED: WATER FOR INJECTION,STERILE 0 ML ONE (19:26)
[2017-03-06] MEDS: ATORVASTATIN 10 MG TABLET PO SCH (21:05)
[2017-03-07] MEDS: PROPOFOL 1000 MG/100 ML 100 ML IV SCH (05:39)
[2017-03-07] MEDS: PANTOPRAZOLE 40 MG VIAL IVP SCH (06:51)
[2017-03-07] MEDS: SODIUM CHLORIDE FLUSH 0.9% 10 ML SYRINGE IVP SCH ×3 (06:51→16:49)
[2017-03-07] MEDS: DOCUSATE SODIUM 250 MG CAPSULE PO SCH (09:31)
[2017-03-07] MEDS: SENNA 8.6 MG TABLET PO SCH (09:32)
[2017-03-07] MEDS: POLYETHYLENE GLYCOL 3350 17 GM PACKET PO SCH (09:32)
[2017-03-07] MEDS ORDERED: ONDANSETRON 4 MG/2 ML VIAL ONE (12:24)
--- NOTE | 2017-03-07 13:14 | XRAY Report ---
FRONTAL CHEST: 03/07/2017 CLINICAL INDICATION: Status post code blue. IMPRESSION: Frontal view of the chest demonstrates a normal cardiac silhouette. The lungs are clear . No effusion or pneumothorax is present. Calcified breast implants are again incidentally noted. IMPRESSION: NO EVIDENCE OF ACUTE CARDIOPULMONARY DISEASE. JOB #: [id number] EXT JOB #:[id number]
[2017-03-07 13:26] LABS: BASOPHILS % (AUTO) 0.1 %; EOSINOPHILS # (AUTO) 0.1 10^3/uL (0.0-0.7); HCT - HEMATOCRIT 33.9 % (37.0-47.0); HGB - HEMOGLOBIN 11.7 g/dL (12.0-16.0); LYMPHOCYTES # (AUTO) 1.8 10^3/uL (1.5-3.5); LYMPHOCYTES % (AUTO) 33.3 %; MEAN CORPUSCULAR HGB CONC 34.4 g/dL (32.0-36.0); MEAN CORPUSCULAR VOLUME 93.2 fL (81.0-99.0); MONOCYTES # (AUTO) 0.6 10^3/uL (0.0-1.0); MONOCYTES % (AUTO) 11.9 %; NEUTROPHILS # (AUTO) 2.9 10^3/uL (1.5-6.6); NEUTROPHILS % (AUTO) 53.7 %; RED BLOOD COUNT 3.64 10^6/uL (4.20-5.40); RED CELL DISTRIBUTION WIDTH 15.1 % (12.0-15.0); UNCORRECTED WHITE BLOOD COUNT 5.3 x10^3/uL; WHITE BLOOD COUNT 5.3 x10^3/uL (4.8-10.8)
[2017-03-07 13:27] LABS: ALBUMIN/GLOBULIN RATIO 1.3 (1.0-2.2); BILIRUBIN,TOTAL 0.4 mg/dL (0.2-1.0); BUN - BLOOD UREA NITROGEN 13 mg/dL (6-20); CALCIUM 8.3 mg/dL (8.5-10.3); CARBON DIOXIDE - CO2 23 mmol/L (21-32); CHLORIDE 105 mmol/L (101-111); CREATININE 0.8 mg/dL (0.4-1.0); GFR - MDRD 72 (>89); GLUCOSE 170 mg/dL (70-100); POTASSIUM 3.8 mmol/L (3.5-5.0); SODIUM 137 mmol/L (135-145); TOTAL PROTEIN 6.1 g/dL (6.7-8.2)
[2017-03-07 13:29] LABS: MAGNESIUM 1.6 mg/dL (1.7-2.8); PHOSPHORUS 4.3 mg/dL (2.5-4.6)
[2017-03-07 13:45] LABS: CALCIUM, IONIZED 1.12 mmol/L (1.15-1.33); VBG PH 7.315 (7.31-7.41)
[2017-03-07] MEDS ORDERED: MAGNESIUM SULFATE 2 GRAM 50 ML IV SCH (14:00)
[2017-03-07] MEDS ORDERED: IOPAMIDOL-300 100 ML VIAL IVP ONE (14:18)
--- NOTE | 2017-03-07 15:08 | CT Preliminary Report ---
Exam: CT Chest Angio (PE) IMPRESSION: 1. No pulmonary emboli. 2. No focal consolidation. 3. Subtle 1-2 mm nodules in the periphery of the right middle lobe and right lower lobe are nonspecif ic but can be seen in the setting of inflammatory and infectious etiology. 4. Diffuse septal thickening throughout the upper lobes bilaterally is nonspecific but can be seen in the setting of pulmonary edema. There is a small pericardial effusion/thickening measuring up to 14 mm. No pleural effusion. [facility] SITE ID: [id number]
--- NOTE | 2017-03-07 15:11 | CT Report ---
EXAM: CT ANGIOGRAM CHEST EXAM DATE: 03/07/2017 02:18 PM. CLINICAL HISTORY: Rule out PE for patient that became cyanotic. COMPARISON: None. TECHNIQUE: Routine helical imaging was performed through the chest in the pulmonary arterial phase. I V Contrast: 100 mL Isovue-300. Reconstructions: Coronal 3-D MIP reconstructions.Sagittal and coronal. In accordance with CT protocol optimization, one or more of the following dose reduction techniques w ere utilized for this exam: automated exposure control, adjustment of mA and/or KV based on patient s ize, or use of iterative reconstructive technique. FINDINGS: Pulmonary Arteries: Diagnostic quality: Adequate through the segmental arteries. No evidence for acute or chronic pulmona ry emboli. RV/LV is within normal limits. There is no interventricular septal bowing. There is no reflux of cont rast material in the IVC. Lungs/Pleura: Severe centrilobular emphysematous changes throughout both lungs with an upper lobe pre dominance. Diffuse smooth septal thickening bilaterally. Atelectatic changes in the right lung base. No focal consolidation or suspicious pulmonary nodules or masses. Multiple 1-2 mm nodules in the seth phery of the right middle lobe and right lower lobe. Mediastinum: There is a small pericardial effusion/thickening along the anterior aspect of the heart measuring up to 14 mm in thickness. Thoracic Aorta: Unremarkable. Upper Abdomen: Unremarkable. Other: None. IMPRESSION: 1. No pulmonary emboli. 2. No focal consolidation. 3. Subtle 1-2 mm nodules in the periphery of the right middle lobe and right lower lobe are nonspecif ic but can be seen in the setting of inflammatory and infectious etiology. 4. Diffuse septal thickening throughout the upper lobes bilaterally is nonspecific but can be seen in the setting of pulmonary edema. There is a small pericardial effusion/thickening measuring up to 14 mm. No pleural effusion. [facility] Referring Provider Line: [phone] SITE ID: [id number]
--- NOTE | 2017-03-07 18:57 | PROVIDER PROGRESS NOTE ---
Hospitalist Cross-cover Note - Cross-Cover Note Cross-Cover Note: Rapid response called this afternoon after patients left IJ removed by RN. RN states she went to throw out the IJ and when she returned the patient was stating she did not feel well and was stating she felt warm. Then patient became unresponsive. When MD arrived on scene patient appeared cyanotic and was not breathing. She had weak pulse initially and was not responding. Eventually pulse was lost and CPR started. Patient had chest compressions for about 2 mins before pulse was found. She continued to be apneic with agonal breathing. Bagging was continued by anesthesia and initially decision was made to intubate. As medications were drawn for intubation patient seemed to recover. She was awake, alert and seemed to be breathing on her own. Vitals were checked and she was saturating well on RA and was mild tachycardic and tachypnic. All of this lasted about 18 mins and patient was responsive after about 10-12 mins. Labs were sent and returned normal. CXR and EKG were negative. CTA of the thorax was negative for PE. Patient likely had a pulmonary arrest secondary to an air emoblism but appears to have recovered spontaneously with respiratory and cardiovascular support.
--- NOTE | 2017-03-07 19:01 | PROVIDER PROGRESS NOTE ---
Assessment/Plan - Problem List (1) Cardiopulmonary arrest Assessment/Plan: Likely secondary to air embolism after pulling central line Patient recovered with 2 mins of CPR and 10 mins of airway support with O2 Did not require intubation and recovered spontaneously with cardiopulmonary support CTA thorax negative for PE CXR negative Labs normal Full respiratory recovery Thought to most likely be secondary to an air embolism Patient not stable for discharge to SNF or psych facility today given events (2) Poisoning by tricyclic antidepressant, intentional self-harm Impression: EKG and QT interval stable now. s/p bicarb drip . Initially in ICU. transferred to floor with tele. Medically stable. she is voluntarily willing to go to inpatient unit since she is still stating suicidal intent. Qualifiers: Encounter type: initial encounter Qualified Code(s): T43.012A - Poisoning by tricyclic antidepressants, intentional self-harm, initial encounter (3) Unsteady gait Impression: with diminished safety awareness. PT/OT states she is not stable to go to psych facility and could not access her today given arrest Will re-access tomorrow. Still very weak and unsteady (4) Hyperlipidemia Impression: resume simvastatin. Qualifiers: Hyperlipidemia type: pure hypercholesterolemia Qualified Code(s): E78.00 - Pure hypercholesterolemia, unspecified; E78.0 - Pure hypercholesterolemia - Current Meds Current Meds: Current Medications Generic Name Dose Route Start Last Admin Trade Name Freq PRN Reason Stop Dose Admin Atorvastatin Calcium 10 mg 03/06/17 21:00 03/06/17 21:05 Lipitor PO 10 mg QPM NATHAN Administration Docusate Sodium 250 - 500 mg 03/05/17 09:00 03/07/17 09:31 Colace 250mg Capsule PO 250 mg DAILY NATHAN Administration Lorazepam 1 mg 03/01/17 14:58 03/05/17 00:27 Ativan Inj IVP 1 mg Q1HR PRN Administration Anxiety Morphine Sulfate 2 mg 03/01/17 02:43 03/02/17 21:46 Morphine IVP 2 mg Q1H PRN Administration Discomfort Olanzapine 10 mg 03/04/17 22:03 03/04/17 22:35 Zyprexa Im IM 10 mg QPM PRN Administration Agitation Pantoprazole Sodium 40 mg 03/01/17 07:00 03/07/17 06:51 Protonix IVP 40 mg QDAC NATHAN Administration Polyethylene Glycol 17 gm 03/03/17 09:00 03/07/17 09:32 Miralax PO 17 gm DAILY NATHAN Administration Senna 8.6 - 17.2 mg 03/05/17 09:00 03/07/17 09:32 Senokot PO 17.2 mg DAILY NATHAN Administration Sodium Chloride 10 ml 03/01/17 02:32 03/05/17 05:47 Normal Saline Flush 0.9% IVP 10 ml PRN PRN Administration NEEDED PER PROVIDER ORDERS Sodium Chloride 10 ml 03/01/17 06:00 03/07/17 16:49 Normal Saline Flush 0.9% IVP 10 ml Q8HR NATHAN Administration - Lab Result Lab results reviewed: Yes Fish Bone Diagrams: 03/07/17 12:30 03/07/17 12:30 - EKG Results EKG Interpreted Independently: Yes - Diagnostic Imaging Results Diagnostic Imaging Results: positive: Final report reviewed - Additional Planning Condition/Complexity: Guarded Consult/Specialty: PT Time Spent: Greater than 60 minutes Subjective - Subjective Patient Reports: Other (Was feeling well this am till she arrested. She is now better. jUst had nausea and abdominal bloating. She denies any fever or chills. Still feels very weak.) Nursing Reports: No Complaints Objective Vital Signs: Vital Signs - 24 hr 03/06/17 03/07/17 03/07/17 20:24 00:38 03:01 Temperature 37.1 C 36.8 C Heart Rate [ 74 Brachial] Heart Rate [ 86 81 Monitoring electrodes] Respiratory 16 16 Rate Blood Pressure 149/85 H 153/75 H [Left Brachial artery] Blood Pressure 150/70 H [Right Brachial artery] O2 Saturation 94 96 03/07/17 03/07/17 03/07/17 05:00 07:33 13:00 Temperature 36.7 C 36.8 C 36.6 C Heart Rate [ 71 75 89 Brachial] Heart Rate [ Monitoring electrodes] Respiratory 18 18 17 Rate Blood Pressure 109/68 [Left Brachial artery] Blood Pressure 93/51 L 122/68 [Right Brachial artery] O2 Saturation 93 95 99 03/07/17 03/07/17 15:05 15:56 Temperature 36.1 C L Heart Rate [ 94 Brachial] Heart Rate [ Monitoring electrodes] Respiratory 18 Rate Blood Pressure [Left Brachial artery] Blood Pressure 101/62 [Right Brachial artery] O2 Saturation 97 97 Oxygen O2 Source [With Activity] Room air O2 Source Nasal cannula I&O (Last 24 Hrs): Intake and Output Totals x24h 03/05/17 03/06/17 03/07/17 23:59 23:59 23:59 Intake Total 2580 1400 1258 Output Total 2215 500 Balance 351 820 4830 General: Alert, Oriented x3, Cooperative HEENT: Atraumatic, PERRLA, EOMI, Mucous membr. moist/pink Neck: Supple, No JVD, No thyromegaly, +2 carotid pulse wo bruit, No LAD Lymphatic: no adenopathy Neuro: Alert, Non Focal, CN 2-12 Grossly Intact, Oriented Times 3 Cardiovascular: Regular rate, Normal S1, Normal S2, No murmurs Respiratory: Chest non-tender, No respiratory distress, Breath sounds nml Abdomen: Normal bowel sounds, Soft, No tenderness, No hepatospenomegaly, No masses Extremities: No clubbing, No cyanosis, No edema, Normal pulses, No tenderness/ swelling Skin: No rashes, No breakdown, No significant lesion Comments/Notes: Depressed, suicidal - Results Results: Laboratory Results WBC 5.3 x10^3/uL (4.8-10.8) 03/07/17 12:30 RBC 3.64 10^6/uL (4.20-5.40) L 03/07/17 12:30 Hgb 11.7 g/dL (12.0-16.0) L 03/07/17 12:30 Hct 33.9 % (37.0-47.0) L 03/07/17 12:30 MCV 93.2 fL (81.0-99.0) 03/07/17 12:30 MCH 32.0 pg (27.0-31.0) H 03/07/17 12:30 MCHC 34.4 g/dL (32.0-36.0) 03/07/17 12:30 RDW 15.1 % (12.0-15.0) H 03/07/17 12:30 Plt Count 213 10^3/uL (130-450) 03/07/17 12:30 MPV 7.0 fL (7.9-10.8) L 03/07/17 12:30 Neut # 2.9 10^3/uL (1.5-6.6) 03/07/17 12:30 Lymph # 1.8 10^3/uL (1.5-3.5) 03/07/17 12:30 [place] # 0.6 10^3/uL (0.0-1.0) 03/07/17 12:30 Eos # 0.1 10^3/uL (0.0-0.7) 03/07/17 12:30 Baso # 0.0 10^3/uL (0.0-0.1) 03/07/17 12:30 Absolute Nucleated RBC 0.00 x10^3/uL 03/07/17 12:30 Nucleated RBCs 0.0 /100WBC 03/07/17 12:30 Bld Gas Analysis Time 0820 03/02/17 08:20 Sample Site RIGHT FEMORAL 03/02/17 08:20 Patient Temperature 36.0 CELSIUS 03/01/17 05:20 ABG pH 7.52 (7.35-7.45) H 03/02/17 08:20 ABG pCO2 35 mmHg (34-45) 03/02/17 08:20 ABG pO2 27 mmHg (80-100) L* 03/02/17 08:20 ABG HCO3 28.0 mmol/L (22.0-26.0) H 03/02/17 08:20 ABG Total CO2 29.0 MMOL/L (21.0-29.0) 03/02/17 08:20 ABG O2 Saturation 53 % (94-98) L* 03/02/17 08:20 ABG Oximetry Spot Check 98 % 03/02/17 08:20 ABG Base Excess 5.0 mmol/L (-2.0-3.0) H 03/02/17 08:20 [place] Test POSITIVE 03/02/17 08:20 VBG pH 7.315 (7.31-7.41) 03/07/17 12:30 Ionized Calcium 1.12 mmol/L (1.15-1.33) L 03/07/17 12:30 Respiration Rate 16 b/min 03/02/17 08:20 O2 Delivery Device VENTILATOR 03/02/17 08:20 Vent Mode SIMV 03/02/17 08:20 FiO2 30.00 03/02/17 08:20 Tidal Volume 550 mL 03/02/17 08:20 PEEP 5 cmH2O 03/02/17 08:20 Pressure Support Vent 10 cmH2O 03/02/17 08:20 Sodium 137 mmol/L (135-145) 03/07/17 12:30 Potassium 3.8 mmol/L (3.5-5.0) 03/07/17 12:30 Chloride 105 mmol/L (101-111) 03/07/17 12:30 Carbon Dioxide 23 mmol/L (21-32) 03/07/17 12:30 Anion Gap 9.0 (6-13) 03/07/17 12:30 BUN 13 mg/dL (6-20) 03/07/17 12:30 Creatinine 0.8 mg/dL (0.4-1.0) 03/07/17 12:30 Estimated GFR (MDRD) 72 (>89) L 03/07/17 12:30 Glucose 170 mg/dL (70-100) H 03/07/17 12:30 Lactic Acid 1.9 mmol/L (0.5-2.2) 03/07/17 12:30 Calcium 8.3 mg/dL (8.5-10.3) L 03/07/17 12:30 Ionized Calcium YES 03/07/17 12:30 Phosphorus 4.3 mg/dL (2.5-4.6) 03/07/17 12:30 Magnesium 1.6 mg/dL (1.7-2.8) L 03/07/17 12:30 Total Bilirubin 0.4 mg/dL (0.2-1.0) 03/07/17 12:30 AST 25 IU/L (10-42) 03/07/17 12:30 ALT 21 IU/L (10-60) 03/07/17 12:30 Alkaline Phosphatase 78 IU/L (42-121) 03/07/17 12:30 Total Creatine Kinase 101 IU/L (22-269) 03/07/17 12:30 CK-MB (CK-2) 1.4 ng/mL (0.6-6.3) 03/01/17 02:59 Troponin I < 0.04 ng/mL (<0.49) 03/01/17 14:40 Total Protein 6.1 g/dL (6.7-8.2) L 03/07/17 12:30 Albumin 3.4 g/dL (3.2-5.5) 03/07/17 12:30 Globulin 2.7 g/dL (2.1-4.2) 03/07/17 12:30 Albumin/Globulin Ratio 1.3 (1.0-2.2) 03/07/17 12:30 Lipase 72 U/L (22-51) H 03/01/17 00:50 Urine Color YELLOW 03/01/17 05:20 Urine Clarity CLEAR (CLEAR) 03/01/17 05:20 Urine pH 8.5 PH (5.0-7.5) H 03/01/17 05:20 Ur Specific [place] 1.015 (1.002-1.030) 03/01/17 05:20 Urine Protein NEGATIVE mg/dL (NEGATIVE) 03/01/17 05:20 Urine Glucose (UA) NEGATIVE mg/dL (NEGATIVE) 03/01/17 05:20 Urine Ketones 40 mg/dL (NEGATIVE) H 03/01/17 05:20 Urine Occult Blood TRACE-LYSE (NEGATIVE) 03/01/17 05:20 Urine Nitrite NEGATIVE (NEGATIVE) 03/01/17 05:20 Urine Bilirubin NEGATIVE (NEGATIVE) 03/01/17 05:20 Urine Urobilinogen 0.2 (NORMAL) E.U./dL (NORMAL) 03/01/17 05:20 Ur Leukocyte Esterase NEGATIVE (NEGATIVE) 03/01/17 05:20 Urine RBC 0-5 /HPF (0-5) 03/01/17 05:20 Urine WBC 0-3 /HPF (0-5) 03/01/17 05:20 Ur Squamous Epith Cells RARE Squamous (<= Few) 03/01/17 05:20 Urine Bacteria None Seen /HPF (None Seen) 03/01/17 05:20 Urine Mucus Moderate Strands 03/01/17 01:34 Ur Microscopic Review INDICATED 03/01/17 01:34 Urine Culture Comments NOT INDICATED 03/01/17 05:20 Urine Opiates Screen NEGATIVE (NEGATIVE) 03/01/17 01:34 Ur Oxycodone Screen NEGATIVE (NEGATIVE) 03/01/17 01:34 Urine Methadone Screen NEGATIVE (NEGATIVE) 03/01/17 01:34 Ur Propoxyphene Screen NEGATIVE (NEGATIVE) 03/01/17 01:34 Ur Barbiturates Screen NEGATIVE (NEGATIVE) 03/01/17 01:34 Ur Tricyclics Screen POSITIVE (NEGATIVE) H 03/01/17 01:34 Ur Phencyclidine Scrn NEGATIVE (NEGATIVE) 03/01/17 01:34 Ur Amphetamine Screen NEGATIVE (NEGATIVE) 03/01/17 01:34 U Methamphetamines Scrn NEGATIVE (NEGATIVE) 03/01/17 01:34 U Benzodiazepines Scrn NEGATIVE (NEGATIVE) 03/01/17 01:34 Urine Cocaine Screen NEGATIVE (NEGATIVE) 03/01/17 01:34 U Cannabinoids Screen NEGATIVE (NEGATIVE) 03/01/17 01:34 Ethyl Alcohol < 5.0 mg/dL 03/01/17 00:50
[2017-03-07] MEDS: ATORVASTATIN 10 MG TABLET PO SCH (21:08)
[2017-03-08] MEDS: SODIUM CHLORIDE FLUSH 0.9% 10 ML SYRINGE IVP SCH ×3 (06:10→21:50)
[2017-03-08] MEDS: PANTOPRAZOLE 40 MG VIAL IVP SCH (06:10)
[2017-03-08] MEDS: DOCUSATE SODIUM 250 MG CAPSULE PO SCH (09:31)
[2017-03-08] MEDS: POLYETHYLENE GLYCOL 3350 17 GM PACKET PO SCH (09:31)
[2017-03-08] MEDS: SENNA 8.6 MG TABLET PO SCH (09:32)
[2017-03-08 09:48] LABS: BASOPHILS % (AUTO) 0.7 %; EOSINOPHILS # (AUTO) 0.3 10^3/uL (0.0-0.7); EOSINOPHILS % (AUTO) 3.8 %; HCT - HEMATOCRIT 35.7 % (37.0-47.0); HGB - HEMOGLOBIN 12.1 g/dL (12.0-16.0); LYMPHOCYTES # (AUTO) 1.1 10^3/uL (1.5-3.5); MEAN CORPUSCULAR HEMOGLOBIN 31.1 pg (27.0-31.0); MEAN CORPUSCULAR HGB CONC 33.9 g/dL (32.0-36.0); MEAN CORPUSCULAR VOLUME 91.7 fL (81.0-99.0); MEAN PLATELET VOLUME 7.1 fL (7.9-10.8); MONOCYTES # (AUTO) 0.7 10^3/uL (0.0-1.0); MONOCYTES % (AUTO) 10.8 %; NEUTROPHILS # (AUTO) 4.7 10^3/uL (1.5-6.6); NEUTROPHILS % (AUTO) 68.7 %; RED BLOOD COUNT 3.89 10^6/uL (4.20-5.40); RED CELL DISTRIBUTION WIDTH 14.4 % (12.0-15.0); UNCORRECTED WHITE BLOOD COUNT 6.9 x10^3/uL; WHITE BLOOD COUNT 6.9 x10^3/uL (4.8-10.8)
[2017-03-08 10:00] LABS: ALBUMIN/GLOBULIN RATIO 1.2 (1.0-2.2); BILIRUBIN,TOTAL 0.5 mg/dL (0.2-1.0); BUN - BLOOD UREA NITROGEN 12 mg/dL (6-20); CALCIUM 8.9 mg/dL (8.5-10.3); CARBON DIOXIDE - CO2 25 mmol/L (21-32); CHLORIDE 101 mmol/L (101-111); CREATININE 0.8 mg/dL (0.4-1.0); GFR - MDRD 72 (>89); GLUCOSE 137 mg/dL (70-100); POTASSIUM 3.9 mmol/L (3.5-5.0); SODIUM 136 mmol/L (135-145); TOTAL PROTEIN 6.8 g/dL (6.7-8.2)
[2017-03-08] MEDS ORDERED: LORazepam 0.5 MG TABLET PO SCH (12:00)
--- NOTE | 2017-03-08 18:33 | PROVIDER PROGRESS NOTE ---
Assessment/Plan - Problem List (1) Cardiopulmonary arrest Assessment/Plan: Likely secondary to air embolism after pulling central line Patient recovered with 2 mins of CPR and 10 mins of airway support with O2 Did not require intubation and recovered spontaneously with cardiopulmonary support CTA thorax negative for PE CXR negative Labs normal Full respiratory recovery Thought to most likely be secondary to an air embolism Patient improved today but could not find placement (2) Poisoning by tricyclic antidepressant, intentional self-harm Impression: EKG and QT interval stable now. s/p bicarb drip . Initially in ICU. transferred to floor with tele. Medically stable. she is voluntarily willing to go to inpatient unit since she is still stating suicidal intent. Qualifiers: Encounter type: initial encounter Qualified Code(s): T43.012A - Poisoning by tricyclic antidepressants, intentional self-harm, initial encounter (3) Unsteady gait Impression: with diminished safety awareness. PT/OT accessed today and felt she could go to psych facility with walker Awaiting placement (4) Hyperlipidemia Impression: On lipitor Qualifiers: Hyperlipidemia type: pure hypercholesterolemia Qualified Code(s): E78.00 - Pure hypercholesterolemia, unspecified; E78.0 - Pure hypercholesterolemia - Current Meds Current Meds: Current Medications Generic Name Dose Route Start Last Admin Trade Name Freq PRN Reason Stop Dose Admin Atorvastatin Calcium 10 mg 03/06/17 21:00 03/07/17 21:08 Lipitor PO 10 mg QPM NATHAN Administration Docusate Sodium 250 - 500 mg 03/05/17 09:00 03/08/17 09:31 Colace 250mg Capsule PO 500 mg DAILY NATHAN Administration Morphine Sulfate 2 mg 03/01/17 02:43 03/02/17 21:46 Morphine IVP 2 mg Q1H PRN Administration Discomfort Olanzapine 10 mg 03/04/17 22:03 03/04/17 22:35 Zyprexa Im IM 10 mg QPM PRN Administration Agitation Pantoprazole Sodium 40 mg 03/01/17 07:00 03/08/17 06:10 Protonix IVP 40 mg QDAC NATHAN Administration Polyethylene Glycol 17 gm 03/03/17 09:00 03/08/17 09:31 Miralax PO 17 gm DAILY NATHAN Administration Senna 8.6 - 17.2 mg 03/05/17 09:00 03/08/17 09:32 Senokot PO 17.2 mg DAILY NATHAN Administration Sodium Chloride 10 ml 03/01/17 02:32 03/05/17 05:47 Normal Saline Flush 0.9% IVP 10 ml PRN PRN Administration NEEDED PER PROVIDER ORDERS Sodium Chloride 10 ml 03/01/17 06:00 03/08/17 13:57 Normal Saline Flush 0.9% IVP 10 ml Q8HR NATHAN Administration - Lab Result Lab results reviewed: Yes Fish Bone Diagrams: 03/08/17 09:38 03/08/17 09:38 - EKG Results EKG Interpreted Independently: Yes - Diagnostic Imaging Results Diagnostic Imaging Results: positive: Final report reviewed - Additional Planning Condition/Complexity: Improved Consult/Specialty: PT Plan Discussed with:: Patient, Family Time Spent: 31-60 minutes Subjective - Subjective Patient Reports: Feeling Better (Patient is a little anxious after what happened yesterday. She was reassured and felt better. She is feeling stronger.) Nursing Reports: No Complaints Objective Vital Signs: Vital Signs - 24 hr 03/07/17 03/07/17 03/08/17 20:20 23:52 06:08 Temperature 36.6 C 36.4 C L 36.4 C L Heart Rate [ 89 82 75 Brachial] Respiratory 18 18 18 Rate Blood Pressure 93/58 L 119/69 137/64 H [Right Brachial artery] O2 Saturation 94 97 97 03/08/17 03/08/17 03/08/17 08:56 13:00 13:56 Temperature 36.7 C 36.8 C Heart Rate [ 78 79 78 Brachial] Respiratory 18 20 18 Rate Blood Pressure 109/64 132/86 H [Right Brachial artery] O2 Saturation 98 99 95 03/08/17 15:56 Temperature 37.2 C Heart Rate [ 78 Brachial] Respiratory 22 Rate Blood Pressure 117/60 [Right Brachial artery] O2 Saturation 94 Oxygen O2 Source [With Activity] Room air O2 Source Room air I&O (Last 24 Hrs): Intake and Output Totals x24h 03/06/17 03/07/17 03/08/17 23:59 23:59 23:59 Intake Total 1400 1598 1200 Output Total 500 Balance 900 1598 1200 General: Alert, Oriented x3, Cooperative, No acute distress HEENT: Atraumatic, PERRLA, EOMI, Mucous membr. moist/pink Neck: Supple, No JVD, No thyromegaly, +2 carotid pulse wo bruit, No LAD Lymphatic: no adenopathy Neuro: Alert, Non Focal, CN 2-12 Grossly Intact, Oriented Times 3 Cardiovascular: Regular rate, Normal S1, Normal S2, No murmurs Respiratory: Chest non-tender, No respiratory distress, Breath sounds nml Abdomen: Normal bowel sounds, Soft, No tenderness, No hepatospenomegaly Extremities: No clubbing, No cyanosis, No edema, Normal pulses Skin: No rashes, No breakdown - Results Results: Laboratory Results WBC 6.9 x10^3/uL (4.8-10.8) 03/08/17 09:38 RBC 3.89 10^6/uL (4.20-5.40) L 03/08/17 09:38 Hgb 12.1 g/dL (12.0-16.0) 03/08/17 09:38 Hct 35.7 % (37.0-47.0) L 03/08/17 09:38 MCV 91.7 fL (81.0-99.0) 03/08/17 09:38 MCH 31.1 pg (27.0-31.0) H 03/08/17 09:38 MCHC 33.9 g/dL (32.0-36.0) 03/08/17 09:38 RDW 14.4 % (12.0-15.0) 03/08/17 09:38 Plt Count 207 10^3/uL (130-450) 03/08/17 09:38 MPV 7.1 fL (7.9-10.8) L 03/08/17 09:38 Neut # 4.7 10^3/uL (1.5-6.6) 03/08/17 09:38 Lymph # 1.1 10^3/uL (1.5-3.5) L 03/08/17 09:38 Sebastian # 0.7 10^3/uL (0.0-1.0) 03/08/17 09:38 Eos # 0.3 10^3/uL (0.0-0.7) 03/08/17 09:38 Baso # 0.0 10^3/uL (0.0-0.1) 03/08/17 09:38 Absolute Nucleated RBC 0.00 x10^3/uL 03/08/17 09:38 Nucleated RBCs 0.0 /100WBC 03/08/17 09:38 Bld Gas Analysis Time 0820 03/02/17 08:20 Sample Site RIGHT FEMORAL 03/02/17 08:20 Patient Temperature 36.0 CELSIUS 03/01/17 05:20 ABG pH 7.52 (7.35-7.45) H 03/02/17 08:20 ABG pCO2 35 mmHg (34-45) 03/02/17 08:20 ABG pO2 27 mmHg (80-100) L* 03/02/17 08:20 ABG HCO3 28.0 mmol/L (22.0-26.0) H 03/02/17 08:20 ABG Total CO2 29.0 MMOL/L (21.0-29.0) 03/02/17 08:20 ABG O2 Saturation 53 % (94-98) L* 03/02/17 08:20 ABG Oximetry Spot Check 98 % 03/02/17 08:20 ABG Base Excess 5.0 mmol/L (-2.0-3.0) H 03/02/17 08:20 Kobe Test POSITIVE 03/02/17 08:20 VBG pH 7.315 (7.31-7.41) 03/07/17 12:30 Ionized Calcium 1.12 mmol/L (1.15-1.33) L 03/07/17 12:30 Respiration Rate 16 b/min 03/02/17 08:20 O2 Delivery Device VENTILATOR 03/02/17 08:20 Vent Mode SIMV 03/02/17 08:20 FiO2 30.00 03/02/17 08:20 Tidal Volume 550 mL 03/02/17 08:20 PEEP 5 cmH2O 03/02/17 08:20 Pressure Support Vent 10 cmH2O 03/02/17 08:20 Sodium 136 mmol/L (135-145) 03/08/17 09:38 Potassium 3.9 mmol/L (3.5-5.0) 03/08/17 09:38 Chloride 101 mmol/L (101-111) 03/08/17 09:38 Carbon Dioxide 25 mmol/L (21-32) 03/08/17 09:38 Anion Gap 10.0 (6-13) 03/08/17 09:38 BUN 12 mg/dL (6-20) 03/08/17 09:38 Creatinine 0.8 mg/dL (0.4-1.0) 03/08/17 09:38 Estimated GFR (MDRD) 72 (>89) L 03/08/17 09:38 Glucose 137 mg/dL (70-100) H 03/08/17 09:38 Lactic Acid 1.9 mmol/L (0.5-2.2) 03/07/17 12:30 Calcium 8.9 mg/dL (8.5-10.3) 03/08/17 09:38 Ionized Calcium NO 03/08/17 09:38 Phosphorus 4.3 mg/dL (2.5-4.6) 03/07/17 12:30 Magnesium 1.6 mg/dL (1.7-2.8) L 03/07/17 12:30 Total Bilirubin 0.5 mg/dL (0.2-1.0) 03/08/17 09:38 AST 22 IU/L (10-42) 03/08/17 09:38 ALT 22 IU/L (10-60) 03/08/17 09:38 Alkaline Phosphatase 88 IU/L (42-121) 03/08/17 09:38 Total Creatine Kinase 101 IU/L (22-269) 03/07/17 12:30 CK-MB (CK-2) 1.4 ng/mL (0.6-6.3) 03/01/17 02:59 Troponin I < 0.04 ng/mL (<0.49) 03/01/17 14:40 Total Protein 6.8 g/dL (6.7-8.2) 03/08/17 09:38 Albumin 3.7 g/dL (3.2-5.5) 03/08/17 09:38 Globulin 3.1 g/dL (2.1-4.2) 03/08/17 09:38 Albumin/Globulin Ratio 1.2 (1.0-2.2) 03/08/17 09:38 Lipase 72 U/L (22-51) H 03/01/17 00:50 Urine Color YELLOW 03/01/17 05:20 Urine Clarity CLEAR (CLEAR) 03/01/17 05:20 Urine pH 8.5 PH (5.0-7.5) H 03/01/17 05:20 Ur Specific [place] 1.015 (1.002-1.030) 03/01/17 05:20 Urine Protein NEGATIVE mg/dL (NEGATIVE) 03/01/17 05:20 Urine Glucose (UA) NEGATIVE mg/dL (NEGATIVE) 03/01/17 05:20 Urine Ketones 40 mg/dL (NEGATIVE) H 03/01/17 05:20 Urine Occult Blood TRACE-LYSE (NEGATIVE) 03/01/17 05:20 Urine Nitrite NEGATIVE (NEGATIVE) 03/01/17 05:20 Urine Bilirubin NEGATIVE (NEGATIVE) 03/01/17 05:20 Urine Urobilinogen 0.2 (NORMAL) E.U./dL (NORMAL) 03/01/17 05:20 Ur Leukocyte Esterase NEGATIVE (NEGATIVE) 03/01/17 05:20 Urine RBC 0-5 /HPF (0-5) 03/01/17 05:20 Urine WBC 0-3 /HPF (0-5) 03/01/17 05:20 Ur Squamous Epith Cells RARE Squamous (<= Few) 03/01/17 05:20 Urine Bacteria None Seen /HPF (None Seen) 03/01/17 05:20 Urine Mucus Moderate Strands 03/01/17 01:34 Ur Microscopic Review INDICATED 03/01/17 01:34 Urine Culture Comments NOT INDICATED 03/01/17 05:20 Urine Opiates Screen NEGATIVE (NEGATIVE) 03/01/17 01:34 Ur Oxycodone Screen NEGATIVE (NEGATIVE) 03/01/17 01:34 Urine Methadone Screen NEGATIVE (NEGATIVE) 03/01/17 01:34 Ur Propoxyphene Screen NEGATIVE (NEGATIVE) 03/01/17 01:34 Ur Barbiturates Screen NEGATIVE (NEGATIVE) 03/01/17 01:34 Ur Tricyclics Screen POSITIVE (NEGATIVE) H 03/01/17 01:34 Ur Phencyclidine Scrn NEGATIVE (NEGATIVE) 03/01/17 01:34 Ur Amphetamine Screen NEGATIVE (NEGATIVE) 03/01/17 01:34 U Methamphetamines Scrn NEGATIVE (NEGATIVE) 03/01/17 01:34 U Benzodiazepines Scrn NEGATIVE (NEGATIVE) 03/01/17 01:34 Urine Cocaine Screen NEGATIVE (NEGATIVE) 03/01/17 01:34 U Cannabinoids Screen NEGATIVE (NEGATIVE) 03/01/17 01:34 Ethyl Alcohol < 5.0 mg/dL 03/01/17 00:50
[2017-03-08] MEDS: ATORVASTATIN 10 MG TABLET PO SCH (21:49)
[2017-03-09] MEDS: PANTOPRAZOLE 40 MG VIAL IVP SCH (06:13)
[2017-03-09] MEDS: SODIUM CHLORIDE FLUSH 0.9% 10 ML SYRINGE IVP SCH ×2 (06:13→11:40)
[2017-03-09] MEDS ORDERED: LORazepam 0.5 MG TABLET PO SCH (09:00)
[2017-03-09] MEDS: DOCUSATE SODIUM 250 MG CAPSULE PO SCH (09:13)
[2017-03-09] MEDS: POLYETHYLENE GLYCOL 3350 17 GM PACKET PO SCH (09:14)
[2017-03-09] MEDS: SENNA 8.6 MG TABLET PO SCH (09:15)
--- NOTE | 2017-03-09 10:53 | Discharge Plan ---
Discharge Plan Disposition: 03 SNF DC/Xfer Condition: Good Prescriptions: Lorazepam [Ativan] 1 mg PO Q8H PRN #15 tablet PRN Reason: Anxiety Diet: Regular Activity Restrictions: Activity as Tolerated Shower Restrictions: No Driving Restrictions: No Assistance Devices: Walker Weight Bearing: Full Weight No Smoking: If you smoke, Please STOP! Call for help.
--- NOTE | 2017-03-09 11:29 | DISCHARGE SUMMARY ---
DATE OF ADMISSION: 03/01/2017 DATE OF DISCHARGE: 03/09/2017 PRIMARY DISCHARGING PHYSICIAN: Dr. Christian Medel DISCHARGE DESTINATION: [facility] rehabilitation. DISCHARGE DIAGNOSES: 1. Intentional tricyclic overdose. 2. Suicide attempt. 3. Depression. 4. Anxiety. 5. Air embolism. 6. Cardiopulmonary arrest. DISCHARGE MEDICATIONS: 1. Simvastatin 10 mg p.o. at bedtime. 2. Ativan 1 mg p.o. q.8h. p.r.n. for anxiety. HOSPITAL COURSE: The patient is a 66-year-old female with a past medical history significant for depression, anxiety, and hyperlipidemia who was found unresponsive by her . The patient was brought into the ER by EMS. The patient required ventilatory support for respiratory and airway management. She was intubated in the emergency department. The patient had a central line placed in the emergency department. Her U-tox screen was positive for tricyclics. Her home medication list included amitriptyline, Mirtazapine and Venlafaxine. The patient likely overdosed on amitriptyline. The patient was admitted to the intensive care unit on ventilator. She was placed on a sodium bicarbonate drip and we monitored her lactic acid every 2 hours, we did replace her magnesium and potassium and did monitor her electrolytes every few hours in the ICU. The patient improved with supportive care. Her QT interval was initially very prolonged. Her QT returned to normal after several days of being on a bicarbonate drip. The bicarbonate drip was discontinued. The patient became more alert and she was able to protect her airway. Therefore, she was extubated. After extubation, the patient admitted to feeling depressed and being suicidal and was voluntarily willing to go to a psychiatric facility for help. She was seen by [facility], who recommended inpatient psych facility. The patient, however, had an unsteady gait after she was seen by Physical Therapy. She had deconditioning from her hospitalization and therefore could not go directly to a psychiatric facility. During her time on the medical kirby. She had her central venous line removed. After removal of central venous line, the patient became cyanotic, hypoxic and had a cardiorespiratory arrest requiring CPR for 2 minutes and requiring full supportive care with oxygen. The patient did recover within 10 minutes and then returned back to her normal mental status and respiratory status. She had no further events while she was hospitalized, she was evaluated with a chest x-ray, CT angio of the thorax, lab work, troponin and EKG, all of which were negative. The most likely cause of the patient's cardiopulmonary arrest was thought to be an air embolism as this occurred right after her central line was removed. The patient, however, recovered well. She was continued to improve with physical therapy, but was still requiring a walker and the psychiatric facility would not be willing to take her with a walker. Given that she could use it as a weapon. While she was in the hospital, she did require a couple of doses of Ativan as she did become anxious when she recollected on the fact that she did have a cardiorespiratory arrest. The patient eventually was found a place at [facility] inpatient rehab from where she will transition to a psychiatric facility once she is able to walk independently without a walker. At baseline, the patient does not require a walker and therefore, we are expecting that the patient will be able to improve to a point where she will be independent and able to go to a psychiatric facility. All of the patient's home psychiatric medications were discontinued and were not restarted during the hospitalization. We will await for psychiatric evaluation before she is started on any psychiatric medications given that she was suicidal and she did attempt to commit suicide while on those medications. The patient is being discharged home in stable condition. She is very pleasant. She has a supportive and will eventually be able to get to a psychiatric facility once she is improved from a physical standpoint. PHYSICAL EXAMINATION AT DISCHARGE: VITAL SIGNS: Temperature 36.7, heart rate 87, blood pressure 115/54, respiratory rate 18, O2 saturation 95% on room air. GENERAL: The patient is alert and able to answer questions appropriately. She is not in any acute distress at the moment. She is slightly anxious. HEENT: Pupils are equal and reactive to light. Extraocular muscles are intact. Mucous membranes are moist. There is no conjunctival pallor or scleral icterus. NECK: Supple. No thyromegaly. No JVD. Trachea is midline. LYMPH NODES: There is no cervical or axillary lymphadenopathy noted. CARDIOVASCULAR: S1, S2, regular rate and rhythm. No murmurs, rubs, or gallops. LUNGS: Clear to auscultation bilaterally. No wheezes, rhonchi, or crackles. ABDOMEN: Soft, nontender, nondistended. Bowel sounds are present in all 4 quadrants. EXTREMITIES: There is no lower extremity edema. Peripheral pulses are palpable. There is no cyanosis or clubbing. SKIN: No skin rashes, lesions, cellulitis, or abscesses. NEUROLOGIC: The patient is alert and oriented x3. Cranial nerves 2-12 are grossly intact. Strength is grossly normal. Sensations are intact. LABORATORY: WBC is 6.9, hemoglobin 12.1, hematocrit 35.7, platelet count 207. Ionized calcium 1.12. Sodium 136, potassium 3.9, chloride 101, carbon dioxide 25 , BUN 12, creatinine 0.8, glucose 137. Lactic acid 1.9, calcium 8.9. Phosphatase 4.3, magnesium 1.6, total bilirubin 0.5, AST 22, ALT 22, alkaline phosphatase 88. IMAGIN. CTA of the thorax. Impression: A. No pulmonary emboli. B. No focal consolidation. C. Subtle 1-2 mm nodules in the periphery of the right middle lobe and right lower lobe are nonspecific, but can be seen in the setting of inflammatory or infectious etiology. D. Diffuse septal thickening throughout the upper lobes bilaterally, is nonspecific, but can be seen in the setting of pulmonary edema. There is small pericardial effusion/thickening measuring 14 mm. No pleural effusion. 2. Chest x-ray 03/07/2017. Impression: No evidence of acute cardiopulmonary disease. 3. MRI of the brain on 03/04/2017. Impression: No acute infarct, mass lesion, or other discrete parenchymal process identified. 4. CT of the head. Impression: Generalized age-related cortical atrophic changes without evidence of acute intracranial abnormality. FOLLOWUP/RECOMMENDATIONS: The patient is being discharged to inpatient rehabilitation at [facility]. She will transition from there to a psych facility once she is able to walk independently without a walker. Unfortunately, inpatient psychiatric facilities do not take patients with walkers as that can be used as a weapon. The patient does show capabilities of being able to progress with physical therapy. The patient currently is being discharged on Ativan orally as needed and simvastatin for her history of hyperlipidemia. The patient was discharged in a stable condition. TIME SPENT ON DISCHARGE: Greater than 30 minutes was spent on discharge. JOB #: [id number] EXT JOB #:[id number] [facility]
[2017-03-09 12:55] VITALS: BP 128/76
== END 2017-03-09 13:40 | DRG 917 ==
LOC: EDUNIT# → ED 00:44 → ICU 02:32 → MS 03-07 02:44 → ICU 03-07 12:16 → MS 03-07 13:25
PROVIDERS: ADMIT Specialist; ATTEND Internal Medicine
PROC: 5A1945Z Respiratory Ventilation, 24-96 Consecutive Hours (ICD-10-PCS; principal; 2017-03-01)
DX: T43.012A Poisoning by tricyclic antidepressants, intentional self-harm, initial encounter (principal); R40.2432 Glasgow coma scale score 3-8, at arrival to emergency department; R56.9 Unspecified convulsions; J44.9 Chronic obstructive pulmonary disease, unspecified; R40.20 Unspecified coma; I46.9 Cardiac arrest, cause unspecified; T81.72XA Complication of vein following a procedure, not elsewhere classified, initial encounter; F32.9 Major depressive disorder, single episode, unspecified; F41.9 Anxiety disorder, unspecified; E78.5 Hyperlipidemia, unspecified; Y84.8 Other medical procedures as the cause of abnormal reaction of the patient, or of later complication, without mention of misadventure at the time of the procedure; Y92.239 Unspecified place in hospital as the place of occurrence of the external cause; R26.81 Unsteadiness on feet; E78.00 Pure hypercholesterolemia, unspecified; Z78.1 Physical restraint status; Z87.891 Personal history of nicotine dependence
CPT/HCPCS: 36415; 36556; 36600; 51702; 70450; 70551; 71010; 71275; 80048; 80051; 80053; 80306; 80320; 81001; 81003; 82040; 82310; 82330; 82550; 82553; 82803; 83605; 83690; 83735; 84100; 84132; 84484; 85025; 87086; 87150; 93005; 93010; 94002; 94003; 94640; 96361; 96372; 96374; 96375; 96376; 99285; 99291